=== PATIENT | female | born 1960 | race Hispanic/Latino ===

== ENCOUNTER 2022-11-26 03:18 | Emergency (ER) | payer OTHER ==
--- OUTSIDE RECORDS SUMMARY | 2022-11-26 03:23 | XMS REPORT | Continuity of Care Document ---
:1960 Author Organization [facility] t Address [address] [place] [address] [address] [place] [address] Care Team Providers Name Role Phone Asked, No Pcp Primary Care Physician Unavailable Norah Agustin Attending Clinician Unavailable Clyde Collins Attending Clinician Unavailable Lee Ramos Attending Clinician Unavailable Madison Attending Clinician Unavailable BRENNAN HICKEY Attending Clinician Unavailable DEIDRE LONGORIA Attending Clinician Unavailable HI CASTILLO Attending Clinician Unavailable FRED HUTSON Attending Clinician Unavailable Jose D Silva Attending Clinician Unavailable GC_HESC_Miranda_Hugh Attending Clinician Unavailable ANGELITO BARNETT Attending Clinician Unavailable BRITTNEY HILLIARD Attending Clinician Unavailable EKATERINA_GERTRUDE_Nikole Attending Clinician Unavailable Aleksandra Dacosta Attending Clinician [phone] KNOW, DOES_NOT Admitting Clinician Unavailable Balat, Isam Y Admitting Clinician Unavailable Physician, No Primary or Family Admitting Clinician Unavaila ble Riverorobles_A Admitting Clinician Unavailable Pravin Conner Admitting Clinician Unavailable EKATERINA_ADRIANA_Mirairam_L Admitting Clinician Unavailable JOSEGERTRUDE_Nikole Admitting Clinician Unavailable Payers Payer Name Policy Type Policy Number Effective Date Expiration Date Pat mealra [facility] [employer] [id number] 2016 2024 00:00:00 00:00:00 JARED GRUBER [id number] [facility] [place] [facility] [place] [facility] [id number] 2020 2021 [facility] 00:00:00 00:00:00 [place] [id number] SHARE PROGRAM (O) Problems Condition Condition Condition Status Onset Resolution Last Treating Co mments Source Name Details Category Date Date Treatment Clinician Date Upper Upper Problem Active [facility] respirator Respirator 6-12 Fa freda y y 00:00: Practic infection Infection 00 e Urinary Urinary Problem Active [facility] incontinen Incontinen 06-16 Me dical ce ce 00:00: 00 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 Female 06-14 Medi amie genital Genital 00:00: organs Organs 00 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[facility] vaginitis Vaginitis 06-14 Medi amie 00:00: 00 Dental Dental Disease Active 2014-06 [facility] plaque plaque 0 Health 00:00: 00 Asthma, Asthma, Disease Recurre [facility] mild mild nce 415 Health intermitte intermitte 00:00: nt nt 00 Normal Normal Disease Recurre [place] cardiac cardiac nce [facility] stress stress 00:00: test - test - 00 02/10/2013 02/10/2013 Normal Normal Disease Recurre [facility] echocardio echocardio nce 415 He alth gram - gram - 00:00: 02/09/2013 02/09/2013 00 Allergic Allergic Disease Recurre Sharon is rhinitis rhinitis nce 06-10 Health 00:00: 00 Atypical Atypical Disease Recurre Sharon is chest pain chest pain nce 02-10 He alth 00:00: 00 Gastritis Gastritis Disease Active Overview: [facility] 02-10 [facility] 00:00: g of this 00 note might be different from the original. 04/15/14 [facility] - EGD showed mild gastritis . bx showed H pylori infxn and mod to sev chronic active gastritis ; no dysplasia HLD HLD Disease Recurre [place] (hyperlipi (hyperlipi nce 9-05 He alth demia) demia) 00:00: 00 Cystocele, Cystocele, Disease Recurre [place] midline midline fle 7-10 Health 00:00: 00 Allergies, Adverse Reactions, Alerts Allergy Allergy Status Severity Reaction(s) Onset Inactive Treating Comm ents Source Name Type Date Date Clinician ibuprofe DA Active U [facility]- 00:[facility]: [address] POLLENS DA Active U ITCHING [facility] 3- 00:00: [address] ibuprofe DA Active U GASTRIC [facility] n DISCOMFORT 3- 00:00: [address] No Known DA Active U 2019-06 [facility] Allergie 07[facility]07 [place] 00[place]: [facility] 00 [facility] No Known DA Active U 2019-06 [facility] Allergie 2 [place] 00[place]: [facility] 00 [facility] Ibuprofe Propensi Active Other 2014-06 [place] n ty to 0-09 Health adverse 00:00: reaction 00 s to drug No Known DA Active U 2013-06 [facility] Allergie 1-12 [place] s 00:00: [address] Family History Family Member Diagnosis Comments Start Date Stop Date Source Natural father Diabetes [place] [facility] Maternal grandmother [facility] Natural mother Arthritis [place] [facility] Natural mother Heart [place] [facility] Natural mother Stroke [facility] Natural sister Arthritis [facility] Social History Social Habit Start Date Stop Date Quantity Comments Source [facility] SDOH [facility] Std Drinks [facility] History SDOH [facility] Alcohol Binge Medical Lesa ter Tobacco use and 2019-03-30 2019-03-[address] [facility] exposure 00:00:00 00:00:00 tobacco non-user [facility] Alcohol intake 2019-03-30 2019-03-[address] [facility] 00:00:00 00:00:00 non-drinker of Medical Ce nter alcohol (finding) History SDMI 2019-03-30 2019-03-30 1 MIRANDA [facility] Alcohol Frequency 00:00:00 00:00:00 Medical Center History of Social 2019-01-10 2019-01-[address] function 00:00:00 00:00:00 Hospital Sex Ass[birth year] At [birth year] MIRANDA Wilders 00:00:00 00:00:00 [facility] Smoking Status Start Date Stop Date Source Never Smoker [facility] Tobacco smoking consumption unknown [facility] Medications Ordered Filled Start Stop Current Ordering Indication Dosage Frequency Signature Comments Components Source Medication Medication Date Date Medication? Clinician (SIG) Name Name traMADol 2014-06 Yes Left ankle 50mg Take 1 H arris (ULTRAM) 50 0-31 pain tablet by [facility] lth mg tablet 00:00: mouth 00 every 8 hours as needed for Pain. predniSONE 2014-06 Yes Left ankle Take 4 [place] (DELTASONE) 0-31 pain tablets Healt h 10 mg 00:00: (40 mg) on tablet 00 Day 1; take 3 tablets (30 mg) on Days 2-3; take 2 tablets (20 mg) on Day 4; take 1 tablets (10 mg) on days 5 and 6.. PROVENTIL Yes Asthma with 2{puff} Inhale 2 [place] HFA 90 6-29 acute Puffs by [facility] mcg/actuati 00:00: exacerbatio mouth 4 on inhaler 00 n times daily as needed for Wheezing. budesonide- Yes Asthma with 2{puff} Q.5D Inhale 2 [place] formoterol 6-29 acute Puffs by [facility] th (SYMBICORT) 00:00: exacerbatio mouth 2 160-4.5 00 n times mcg/actuati daily. on inhaler mometasone Yes Allergy 1{spray QD use 1 [place] (NASONEX) 6-29 } [facility] 50 00:00: each mcg/actuati 00 nostril on nasal route spray daily. zafirlukast Yes Asthma with 20mg Q.5D Take 1 [place] (ACCOLATE) 6-29 acute tablet by [facility] lth 20 mg 00:00: exacerbatio mouth 2 tablet 00 n times daily. cetirizine Yes Asthma with 10mg QD Take 1 [place] (ZYRTEC) 10 6-29 acute tablet by alth mg tablet 00:00: exacerbatio mouth 00 n daily. albuterol Yes Asthma with 2.5mg Inhale 3 [place] (PROVENTIL) 6-29 acute mL by [facility] 2.5 mg /3 00:00: exacerbatio mouth mL (0.083 00 n every 6 %) hours as nebulizer needed for solution Wheezing. albuterol Yes Asthma with 2.5mg Inhale 0.5 [place] (PROVENTIL) 6-29 acute mL by [facility] 5 mg/mL 00:00: exacerbatio mouth nebulizer 00 n every 6 solution hours as needed for Wheezing. albuterol Yes Asthma with 2.5mg Inhale 0.5 [place] (PROVENTIL 6-29 acute mL by [facility] 0.5 %) 2.5 00:00: exacerbatio mouth as mg/0.5 mL 00 n needed (as neb needed for solution cough, SOB or wheezing). benzonatate Yes Asthma with 100mg Take 1 [place] (TESSALON 5-12 acute capsule by maxine doan ERICH) 100 00:00: exacerbatio mouth 3 mg capsule 00 n times daily as needed for Cough. Guaifenesin Yes Allergic 400mg Take 1 [place] 400 mg 4-15 rhinitis tablet by Heal th tablet 00:00: mouth 00 every 6 hours as needed for Congestion . albuterol albuterol No albuterol [place] sulfate HFA sulfate HFA sulfate Family 90 90 HFA 90 Practic mcg/actuati mcg/actuati mcg/actuat e on aerosol on aerosol ion inhaler inhaler aerosol PLEASE SEE PLEASE SEE inhaler ATTACHED ATTACHED PLEASE SEE FOR FOR ATTACHED DETAILED DETAILED FOR DIRECTIONS DIRECTIONS DETAILED DIRECTIONS amoxicillin amoxicillin No 1 Q12H amoxicilli [facility] [phone] Family mg-potassiu mg-potassiu mg-potassi Practic m m um e clavulanate clavulanate clavulanat 125 mg 125 mg e 125 mg tablet Take tablet Take tablet 1 tablet 1 tablet Take 1 every 12 every 12 tablet hours by hours by every 12 oral route oral route hours by for 7 days. for 7 days. oral route for 7 days. biest/proge biest/proge No biest/prog [place] sterone/feng sterone/feng esterone/t Family tosterone tosterone estosteron Practic APPLY APPLY e APPLY e CONTENTS OF CONTENTS OF CONTENTS 1 PUMP (0.5 1 PUMP (0.5 OF 1 PUMP MLS) TO MLS) TO (0.5 MLS) UPPER INNER UPPER INNER TO UPPER THIGH TWICE THIGH TWICE INNER A DAY A DAY THIGH TWICE A DAY biest0.625/ biest0.625/ No biest0.625 [facility] [id number] /[id number] Family /test2.5mg /test2.5mg mg/test2.5 Practic cream APPLY cream APPLY mg cream e CONTENTS OF CONTENTS OF APPLY 1 PUMP (0.5 1 PUMP (0.5 CONTENTS MLS) TO MLS) TO OF 1 PUMP UPPER INNER UPPER INNER (0.5 MLS) THIGH TWICE THIGH TWICE TO UPPER A DAY A DAY INNER THIGH TWICE A DAY biest0.625m biest0.625m No biest0.625 [facility] gprogestero gprogestero mgprogeste Family [id number] Practic .5mg APPLY .5mg APPLY st2.5mg e CONTENTS OF CONTENTS OF APPLY 1 PUMP (0.5 1 PUMP (0.5 CONTENTS MLS) TO MLS) TO OF 1 PUMP UPPER INNER UPPER INNER (0.5 MLS) THIGH TWICE THIGH TWICE TO UPPER A DAY A DAY INNER THIGH TWICE A DAY compounded compounded No compounded [facility] medication medication medication Family biest0.625m biest0.625m biest0.625 Practic gprogestero gprogestero mgprogeste e [id number] .5mg APPLY .5mg APPLY st2.5mg CONTENTS OF CONTENTS OF APPLY 1 PUMP (0.5 1 PUMP (0.5 CONTENTS MLS) TO MLS) TO OF 1 PUMP UPPER INNER UPPER INNER (0.5 MLS) THIGH TWICE THIGH TWICE TO UPPER A DAY A DAY INNER THIGH TWICE A DAY erythromyci erythromyci No erythromyc [place] n 5 mg/gram n 5 mg/gram in 5 F amily (0.5 %) eye (0.5 %) eye mg/gram Practic ointment ointment (0.5 %) e APPLY 1 CM APPLY 1 CM eye RIBBON INTO RIBBON INTO ointment THE LOWER THE LOWER APPLY 1 CM CONJUNCTIVA CONJUNCTIVA RIBBON L SAC(S) IN L SAC(S) IN INTO THE THE THE LOWER AFFECTED AFFECTED CONJUNCTIV EYE(S) BY EYE(S) BY AL SAC(S) OPHTHALMIC OPHTHALMIC IN THE ROUTE 3 ROUTE 3 AFFECTED TIMES PER TIMES PER EYE(S) BY DAY x 7 DAY x 7 OPHTHALMIC days days ROUTE 3 TIMES PER DAY x 7 days escitalopra escitalopra No escitalopr [place] m 10 mg m 10 mg am 10 mg Famil y tablet TOME tablet TOME tablet Practic TANJA TABLETA TANJA TABLETA TOME TANJA e TODOS LOS D TODOS LOS D TABLETA AL AL TODOS LOS ACOSTARSE ACOSTARSE D AL ACOSTARSE Flovent HFA Flovent HFA No Flovent [facility] 110 110 HFA 110 Family mcg/actuati mcg/actuati mcg/actuat Practic on aerosol on aerosol ion e inhaler 2 inhaler 2 aerosol PUFFS PUFFS inhaler 2 INHALED INHALED PUFFS ORALLY ORALLY INHALED TWICE A DAY TWICE A DAY ORALLY TWICE A DAY metformin metformin No metformin [facility] 500 mg 500 mg 500 mg Family tablet TAKE tablet TAKE tablet Practic 1 TABLET 1 TABLET TAKE 1 e EVERY DAY EVERY DAY TABLET WITH A MEAL WITH A MEAL EVERY DAY WITH A MEAL omeprazole omeprazole No omeprazole [facility] 20 mg 20 mg 20 mg Family capsule,del capsule,del capsule,de Practic ayed ayed layed e release release release TAKE ONE TAKE ONE TAKE ONE (1) (1) (1) CAPSULE(S) CAPSULE(S) CAPSULE(S) BY MOUTH BY MOUTH BY MOUTH TWICE A TWICE A TWICE A DAY. DAY. DAY. pravastatin pravastatin No pravastati [facility] 20 mg 20 mg n 20 mg Family tablet TOME tablet TOME tablet Practic TANJA TABLETA TANJA TABLETA TOME TANJA e TODOS LOS D TODOS LOS D TABLETA SEG N LO SEG N LO TODOS LOS INDICADO INDICADO D SEG N LO INDICADO albuterol albuterol No albuterol [place] sulfate HFA sulfate HFA sulfate Family 90 90 HFA 90 Practic mcg/actuati mcg/actuati mcg/actuat e on aerosol on aerosol ion inhaler inhaler aerosol PLEASE SEE PLEASE SEE inhaler ATTACHED ATTACHED PLEASE SEE FOR FOR ATTACHED DETAILED DETAILED FOR DIRECTIONS DIRECTIONS DETAILED DIRECTIONS biest/proge biest/proge No biest/prog [facility] sterone/feng sterone/feng esterone/t Family tosterone tosterone estosteron Practic APPLY APPLY e APPLY e CONTENTS OF CONTENTS OF CONTENTS 1 PUMP (0.5 1 PUMP (0.5 OF 1 PUMP MLS) TO MLS) TO (0.5 MLS) UPPER INNER UPPER INNER TO UPPER THIGH TWICE THIGH TWICE INNER A DAY A DAY THIGH TWICE A DAY biest0.625/ biest0.625/ No biest0.625 [facility] [id number] [id number] /iliwzyx99 Family /test2.5mg /test2.5mg mg/test2.5 Practic cream APPLY cream APPLY mg cream e CONTENTS OF CONTENTS OF APPLY 1 PUMP (0.5 1 PUMP (0.5 CONTENTS MLS) TO MLS) TO OF 1 PUMP UPPER INNER UPPER INNER (0.5 MLS) THIGH TWICE THIGH TWICE TO UPPER A DAY A DAY INNER THIGH TWICE A DAY biest0.625m biest0.625m No biest0.625 [facility] g/vffazc42s g/vuowmx72l mg/proges5 Family g/testos2.5 g/testos2.5 0mg/testos Practic mg cream mg cream 2.5mg e APPLY APPLY cream CONTENTS OF CONTENTS OF APPLY 1 PUMP (0.5 1 PUMP (0.5 CONTENTS MLS) TO MLS) TO OF 1 PUMP UPPER INNER UPPER INNER (0.5 MLS) THIGH TWICE THIGH TWICE TO UPPER A DAY A DAY INNER THIGH TWICE A DAY biest0.625m biest0.625m No biest0.625 [facility] gprogestero gprogestero mgprogeste Family [id number] Practic .5mg APPLY .5mg APPLY st2.5mg e CONTENTS OF CONTENTS OF APPLY 1 PUMP (0.5 1 PUMP (0.5 CONTENTS MLS) TO MLS) TO OF 1 PUMP UPPER INNER UPPER INNER (0.5 MLS) THIGH TWICE THIGH TWICE TO UPPER A DAY A DAY INNER THIGH TWICE A DAY compounded compounded No compounded [facility] medication medication medication Family biest0.625m biest0.625m biest0.625 Practic gprogestero gprogestero mgprogeste e [id number] .5mg APPLY .5mg APPLY st2.5mg CONTENTS OF CONTENTS OF APPLY 1 PUMP (0.5 1 PUMP (0.5 CONTENTS MLS) TO MLS) TO OF 1 PUMP UPPER INNER UPPER INNER (0.5 MLS) THIGH TWICE THIGH TWICE TO UPPER A DAY A DAY INNER THIGH TWICE A DAY escitalopra escitalopra No escitalopr [facility] m 10 mg m 10 mg am 10 mg Famil y tablet TOME tablet TOME tablet Practic TANJA TABLETA TANJA TABLETA TOME TANJA e TODOS LOS D TODOS LOS D TABLETA AL AL TODOS LOS ACOSTARSE ACOSTARSE D AL ACOSTARSE Flovent HFA Flovent HFA No Flovent [place] 110 110 HFA 110 Family mcg/actuati mcg/actuati mcg/actuat Practic on aerosol on aerosol ion e inhaler 2 inhaler 2 aerosol PUFFS PUFFS inhaler 2 INHALED INHALED PUFFS ORALLY ORALLY INHALED TWICE A DAY TWICE A DAY ORALLY TWICE A DAY albuterol albuterol No albuterol [facility] sulfate 2.5 sulfate 2.5 sulfate Family mg/3 mL mg/3 mL 2.5 mg/3 Pract ic (0.083 %) (0.083 %) mL (0.083 e solution solution %) for for solution nebulizatio nebulizatio for n USE THREE n USE THREE nebulizati (3) ML(S) (3) ML(S) on USE (VIAL) (VIAL) THREE (3) INHALATION INHALATION ML(S) EVERY 4 EVERY 4 (VIAL) HOURS HOURS INHALATION NEEDED FOR NEEDED FOR EVERY 4 7 DAYS. 7 DAYS. HOURS NEEDED FOR 7 DAYS. metformin metformin No metformin [facility] 500 mg 500 mg 500 mg Family tablet TAKE tablet TAKE tablet Practic 1 TABLET 1 TABLET TAKE 1 e EVERY DAY EVERY DAY TABLET WITH A MEAL WITH A MEAL EVERY DAY WITH A MEAL omeprazole omeprazole No omeprazole [facility] 20 mg 20 mg 20 mg Family capsule,del capsule,del capsule,de Practic ayed ayed layed e release release release TAKE ONE TAKE ONE TAKE ONE (1) (1) (1) CAPSULE(S) CAPSULE(S) CAPSULE(S) BY MOUTH BY MOUTH BY MOUTH TWICE A TWICE A TWICE A DAY. DAY. DAY. pravastatin pravastatin No pravastati [facility] 20 mg 20 mg n 20 mg Family tablet TOME tablet TOME tablet Practic TANJA TABLETA TANJA TABLETA TOME TANJA e TODOS LOS D TODOS LOS D TABLETA SEG N LO SEG N LO TODOS LOS INDICADO INDICADO D SEG N LO INDICADO albuterol albuterol No albuterol [place] sulfate HFA sulfate HFA sulfate Family 90 90 HFA 90 Practic mcg/actuati mcg/actuati mcg/actuat e on aerosol on aerosol ion inhaler inhaler aerosol INHALE TWO INHALE TWO inhaler (2) PUFF BY (2) PUFF BY INHALE TWO MOUTH EVERY MOUTH EVERY (2) PUFF 4 TO 6 4 TO 6 BY MOUTH HOURS HOURS EVERY 4 TO NEEDED FOR NEEDED FOR 6 HOURS COUGH AMD COUGH AMD NEEDED FOR WHEEZING. WHEEZING. COUGH AMD WHEEZING. albuterol albuterol No albuterol [place] sulfate HFA sulfate HFA sulfate Family 90 90 HFA 90 Practic mcg/actuati mcg/actuati mcg/actuat e on aerosol on aerosol ion inhaler inhaler aerosol PLEASE SEE PLEASE SEE inhaler ATTACHED ATTACHED PLEASE SEE FOR FOR ATTACHED DETAILED DETAILED FOR DIRECTIONS DIRECTIONS DETAILED DIRECTIONS biest/proge biest/proge No biest/prog [place] sterone/feng sterone/feng esterone/t Family tosterone tosterone estosteron Practic APPLY APPLY e APPLY e CONTENTS OF CONTENTS OF CONTENTS 1 PUMP (0.5 1 PUMP (0.5 OF 1 PUMP MLS) TO MLS) TO (0.5 MLS) UPPER INNER UPPER INNER TO UPPER THIGH TWICE THIGH TWICE INNER A DAY A DAY THIGH TWICE A DAY biest0.625/ biest0.625/ No biest0.625 [facility] [id number] /wxkqpif88 Family /test2.5mg /test2.5mg mg/test2.5 Practic cream APPLY cream APPLY mg cream e CONTENTS OF CONTENTS OF APPLY 1 PUMP (0.5 1 PUMP (0.5 CONTENTS MLS) TO MLS) TO OF 1 PUMP UPPER INNER UPPER INNER (0.5 MLS) THIGH TWICE THIGH TWICE TO UPPER A DAY A DAY INNER THIGH TWICE A DAY biest0.625m biest0.625m No biest0.625 [facility] g/dpuycl32g g/oekzkb89f mg/proges5 Family g/testos2.5 g/testos2.5 0mg/testos Practic mg cream mg cream 2.5mg e APPLY APPLY cream CONTENTS OF CONTENTS OF APPLY 1 PUMP (0.5 1 PUMP (0.5 CONTENTS MLS) TO MLS) TO OF 1 PUMP UPPER INNER UPPER INNER (0.5 MLS) THIGH TWICE THIGH TWICE TO UPPER A DAY A DAY INNER THIGH TWICE A DAY benzonatate benzonatate No benzonatat [facility] 200 mg 200 mg e 200 mg Family capsule capsule capsule Practi c TAKE ONE TAKE ONE TAKE ONE e (1) (1) (1) CAPSULE(S) CAPSULE(S) CAPSULE(S) BY MOUTH BY MOUTH BY MOUTH THREE TIMES THREE TIMES THREE A DAY. A DAY. TIMES A DAY. biest0.625m biest0.625m No biest0.625 [facility] gprogestero gprogestero mgprogeste Family [id number] [id number] Practic .5mg APPLY .5mg APPLY st2.5mg e CONTENTS OF CONTENTS OF APPLY 1 PUMP (0.5 1 PUMP (0.5 CONTENTS MLS) TO MLS) TO OF 1 PUMP UPPER INNER UPPER INNER (0.5 MLS) THIGH TWICE THIGH TWICE TO UPPER A DAY A DAY INNER THIGH TWICE A DAY compounded compounded No compounded [facility] medication medication medication Family biest0.625m biest0.625m biest0.625 Practic gprogestero gprogestero mgprogeste e [id number] chee93youp .5mg APPLY .5mg APPLY st2.5mg CONTENTS OF CONTENTS OF APPLY 1 PUMP (0.5 1 PUMP (0.5 CONTENTS MLS) TO MLS) TO OF 1 PUMP UPPER INNER UPPER INNER (0.5 MLS) THIGH TWICE THIGH TWICE TO UPPER A DAY A DAY INNER THIGH TWICE A DAY escitalopra escitalopra No escitalopr [facility] m 10 mg m 10 mg am 10 mg Famil y tablet TOME tablet TOME tablet Practic TANJA TABLETA TANJA TABLETA TOME TANJA e TODOS LOS D TODOS LOS D TABLETA AL AL TODOS LOS ACOSTARSE ACOSTARSE D AL ACOSTARSE Flovent HFA Flovent HFA No Flovent [facility] 110 110 HFA 110 Family mcg/actuati mcg/actuati mcg/actuat Practic on aerosol on aerosol ion e inhaler 2 inhaler 2 aerosol PUFFS PUFFS inhaler 2 INHALED INHALED PUFFS ORALLY ORALLY INHALED TWICE A DAY TWICE A DAY ORALLY TWICE A DAY metformin metformin No metformin [facility] 500 mg 500 mg 500 mg Family tablet TAKE tablet TAKE tablet Practic 1 TABLET 1 TABLET TAKE 1 e EVERY DAY EVERY DAY TABLET WITH A MEAL WITH A MEAL EVERY DAY WITH A MEAL omeprazole omeprazole No omeprazole [facility] 20 mg 20 mg 20 mg Family capsule,del capsule,del capsule,de Practic ayed ayed layed e release release release TAKE ONE TAKE ONE TAKE ONE (1) (1) (1) CAPSULE(S) CAPSULE(S) CAPSULE(S) BY MOUTH BY MOUTH BY MOUTH TWICE A TWICE A TWICE A DAY. DAY. DAY. pravastatin pravastatin No pravastati [facility] 20 mg 20 mg n 20 mg Family tablet TOME tablet TOME tablet Practic TANJA TABLETA TANJA TABLETA TOME TANJA e TODOS LOS D TODOS LOS D TABLETA SEG N LO SEG N LO TODOS LOS INDICADO INDICADO D SEG N LO INDICADO biest/proge biest/proge No biest/prog [facility] sterone/feng sterone/feng esterone/t Family tosterone tosterone estosteron Practic APPLY APPLY e APPLY e CONTENTS OF CONTENTS OF CONTENTS 1 PUMP (0.5 1 PUMP (0.5 OF 1 PUMP MLS) TO MLS) TO (0.5 MLS) UPPER INNER UPPER INNER TO UPPER THIGH TWICE THIGH TWICE INNER A DAY A DAY THIGH TWICE A DAY biest0.625/ biest0.625/ No biest0.625 [facility] [id number] [id number] /edqmhgq20 Family /test2.5mg /test2.5mg mg/test2.5 Practic cream APPLY cream APPLY mg cream e CONTENTS OF CONTENTS OF APPLY 1 PUMP (0.5 1 PUMP (0.5 CONTENTS MLS) TO MLS) TO OF 1 PUMP UPPER INNER UPPER INNER (0.5 MLS) THIGH TWICE THIGH TWICE TO UPPER A DAY A DAY INNER THIGH TWICE A DAY albuterol albuterol No albuterol [facility] sulfate HFA sulfate HFA sulfate Family 90 90 HFA 90 Practic mcg/actuati mcg/actuati mcg/actuat e on aerosol on aerosol ion inhaler inhaler aerosol PLEASE SEE PLEASE SEE inhaler ATTACHED ATTACHED PLEASE SEE FOR FOR ATTACHED DETAILED DETAILED FOR DIRECTIONS DIRECTIONS DETAILED DIRECTIONS biest/proge biest/proge No biest/prog [place] sterone/feng sterone/feng esterone/t Family tosterone tosterone estosteron Practic APPLY APPLY e APPLY e CONTENTS OF CONTENTS OF CONTENTS 1 PUMP (0.5 1 PUMP (0.5 OF 1 PUMP MLS) TO MLS) TO (0.5 MLS) UPPER INNER UPPER INNER TO UPPER THIGH TWICE THIGH TWICE INNER A DAY A DAY THIGH TWICE A DAY biest0.625/ biest0.625/ No biest0.625 [facility] [id number] isokpbt91jc /ubumeyk46 Family /test2.5mg /test2.5mg mg/test2.5 Practic cream APPLY cream APPLY mg cream e CONTENTS OF CONTENTS OF APPLY 1 PUMP (0.5 1 PUMP (0.5 CONTENTS MLS) TO MLS) TO OF 1 PUMP UPPER INNER UPPER INNER (0.5 MLS) THIGH TWICE THIGH TWICE TO UPPER A DAY A DAY INNER THIGH TWICE A DAY biest0.625m biest0.625m No biest0.625 [facility] g/ozibtq13s g/jkhtip29h mg/proges5 Family g/testos2.5 g/testos2.5 0mg/testos Practic mg cream mg cream 2.5mg e APPLY APPLY cream CONTENTS OF CONTENTS OF APPLY 1 PUMP (0.5 1 PUMP (0.5 CONTENTS MLS) TO MLS) TO OF 1 PUMP UPPER INNER UPPER INNER (0.5 MLS) THIGH TWICE THIGH TWICE TO UPPER A DAY A DAY INNER THIGH TWICE A DAY biest0.625m biest0.625m No biest0.625 [facility] g/gtvvzeq93 g/ mg/progest Family mg/testos2. mg/testos2. 50mg/testo Practic 5mg crm 5mg crm s2.5mg crm e APPLY APPLY APPLY CONTENTS OF CONTENTS OF CONTENTS 1 PUMP (0.5 1 PUMP (0.5 OF 1 PUMP MLS) TO MLS) TO (0.5 MLS) UPPER INNER UPPER INNER TO UPPER THIGH TWICE THIGH TWICE INNER A DAY A DAY THIGH TWICE A DAY biest0.625m biest0.625m No biest0.625 [facility] gprogestero gprogestero mgprogeste Family [id number] Practic .5mg APPLY .5mg APPLY st2.5mg e CONTENTS OF CONTENTS OF APPLY 1 PUMP (0.5 1 PUMP (0.5 CONTENTS MLS) TO MLS) TO OF 1 PUMP UPPER INNER UPPER INNER (0.5 MLS) THIGH TWICE THIGH TWICE TO UPPER A DAY A DAY INNER THIGH TWICE A DAY Bromfed DM Bromfed DM No 10mL Q4H Bromfed DM [facility] 2 mg-30 2 mg-30 2 mg-30 Family mg-10 mg/5 mg-10 mg/5 mg-10 mg/5 Practic mL oral mL oral mL oral e syrup Take syrup Take syrup Take 10 mL every 10 mL every 10 mL 4 hours by 4 hours by every 4 oral route. oral route. hours by oral route. biest0.625m biest0.625m No biest0.625 [facility] gprogestero gprogestero mgprogeste Family [id number] Practic .5mg APPLY .5mg APPLY st2.5mg e CONTENTS OF CONTENTS OF APPLY 1 PUMP (0.5 1 PUMP (0.5 CONTENTS MLS) TO MLS) TO OF 1 PUMP UPPER INNER UPPER INNER (0.5 MLS) THIGH TWICE THIGH TWICE TO UPPER A DAY A DAY INNER THIGH TWICE A DAY compounded compounded No compounded [facility] medication medication medication Family biest0.625m biest0.625m biest0.625 Practic gprogestero gprogestero mgprogeste e [id number] .5mg APPLY .5mg APPLY st2.5mg CONTENTS OF CONTENTS OF APPLY 1 PUMP (0.5 1 PUMP (0.5 CONTENTS MLS) TO MLS) TO OF 1 PUMP UPPER INNER UPPER INNER (0.5 MLS) THIGH TWICE THIGH TWICE TO UPPER A DAY A DAY INNER THIGH TWICE A DAY escitalopra escitalopra No escitalopr [facility] m 10 mg m 10 mg am 10 mg Famil y tablet TOME tablet TOME tablet Practic TANJA TABLETA TANJA TABLETA TOME TANJA e TODOS LOS TODOS LOS TABLETA CHÁVEZ AL CHÁVEZ AL TODOS LOS ACOSTARSE ACOSTARSE CHÁVEZ AL ACOSTARSE Flovent HFA Flovent HFA No Flovent [facility] 110 110 HFA 110 Family mcg/actuati mcg/actuati mcg/actuat Practic on aerosol on aerosol ion e inhaler 2 inhaler 2 aerosol PUFFS PUFFS inhaler 2 INHALED INHALED PUFFS ORALLY ORALLY INHALED TWICE A DAY TWICE A DAY ORALLY TWICE A DAY metformin metformin No metformin [facility] 500 mg 500 mg 500 mg Family tablet TOME tablet TOME tablet Practic TANJA TABLETA TANJA TABLETA TOME TANJA e TODOS LOS D TODOS LOS D TABLETA TODOS LOS D omeprazole omeprazole No omeprazole [facility] 20 mg 20 mg 20 mg Family capsule,del capsule,del capsule,de Practic ayed ayed layed e release release release TAKE ONE TAKE ONE TAKE ONE (1) (1) (1) CAPSULE(S) CAPSULE(S) CAPSULE(S) BY MOUTH BY MOUTH BY MOUTH TWICE A TWICE A TWICE A DAY. DAY. DAY. pravastatin pravastatin No pravastati [facility] 20 mg 20 mg n 20 mg Family tablet TOME tablet TOME tablet Practic TANJA TABLETA TANJA TABLETA TOME TANJA e TODOS LOS TODOS LOS TABLETA CHÁVEZ NADEGE CHÁVEZ NADEGE TODOS LOS LO INDICADO LO INDICADO CHÁVEZ NADEGE LO INDICADO Zithromax Zithromax No Zithromax [facility] Z-Rick 250 Z-Rick 250 Z-Rick 250 Family mg tablet mg tablet mg tablet Practic TAKE 2 TAKE 2 TAKE 2 e TABLETS TABLETS TABLETS (500 MG) BY (500 MG) BY (500 MG) ORAL ROUTE ORAL ROUTE BY ORAL ONCE DAILY ONCE DAILY ROUTE ONCE FOR 1 DAY FOR 1 DAY DAILY FOR THEN 1 THEN 1 1 DAY THEN TABLET (250 TABLET (250 1 TABLET MG) BY ORAL MG) BY ORAL (250 MG) ROUTE ONCE ROUTE ONCE BY ORAL DAILY FOR 4 DAILY FOR 4 ROUTE ONCE DAYS DAYS DAILY FOR 4 DAYS escitalopra escitalopra No 1 Q1D escitalopr [facility] m 10 mg m 10 mg am 10 mg Famil y tablet Take tablet Take tablet Practic 1 tablet 1 tablet Take 1 e every day every day tablet by oral by oral every day route at route at by oral bedtime for bedtime for route at 90 days. 90 days. bedtime for 90 days. Flovent HFA Flovent HFA No Flovent [facility] 110 110 HFA 110 Family mcg/actuati mcg/actuati mcg/actuat Practic on aerosol on aerosol ion e inhaler 2 inhaler 2 aerosol PUFFS PUFFS inhaler 2 INHALED INHALED PUFFS ORALLY ORALLY INHALED TWICE A DAY TWICE A DAY ORALLY TWICE A DAY metformin metformin No 1 Q1D metformin [facility] 500 mg 500 mg 500 mg Family tablet Take tablet Take tablet Practic 1 tablet 1 tablet Take 1 e every day every day tablet by oral by oral every day route for route for by oral 90 days. 90 days. route for 90 days. albuterol albuterol No albuterol [facility] sulfate HFA sulfate HFA sulfate Family 90 90 HFA 90 Practic mcg/actuati mcg/actuati mcg/actuat e on aerosol on aerosol ion inhaler inhaler aerosol PLEASE SEE PLEASE SEE inhaler ATTACHED ATTACHED PLEASE SEE FOR FOR ATTACHED DETAILED DETAILED FOR DIRECTIONS DIRECTIONS DETAILED DIRECTIONS biest/proge biest/proge No biest/prog [facility] sterone/feng sterone/feng esterone/t Family tosterone tosterone estosteron Practic APPLY APPLY e APPLY e CONTENTS OF CONTENTS OF CONTENTS 1 PUMP (0.5 1 PUMP (0.5 OF 1 PUMP MLS) TO MLS) TO (0.5 MLS) UPPER INNER UPPER INNER TO UPPER THIGH TWICE THIGH TWICE INNER A DAY A DAY THIGH TWICE A DAY biest0.625/ biest0.625/ No biest0.625 [facility] [id number] Family /test2.5mg /test2.5mg mg/test2.5 Practic cream APPLY cream APPLY mg cream e CONTENTS OF CONTENTS OF APPLY 1 PUMP (0.5 1 PUMP (0.5 CONTENTS MLS) TO MLS) TO OF 1 PUMP UPPER INNER UPPER INNER (0.5 MLS) THIGH TWICE THIGH TWICE TO UPPER A DAY A DAY INNER THIGH TWICE A DAY biest0.625m biest0.625m No biest0.625 [facility] [id number] g/[id number] mg/proges5 Family g/testos2.5 g/testos2.5 0mg/testos Practic mg cream mg cream 2.5mg e APPLY APPLY cream CONTENTS OF CONTENTS OF APPLY 1 PUMP (0.5 1 PUMP (0.5 CONTENTS MLS) TO MLS) TO OF 1 PUMP UPPER INNER UPPER INNER (0.5 MLS) THIGH TWICE THIGH TWICE TO UPPER A DAY A DAY INNER THIGH TWICE A DAY biest0.625m biest0.625m No biest0.625 [facility] g/[id number] g/[id number] mg/progest Family mg/testos2. mg/testos2. 50mg/testo Practic 5mg crm 5mg crm s2.5mg crm e APPLY APPLY APPLY CONTENTS OF CONTENTS OF CONTENTS 1 PUMP (0.5 1 PUMP (0.5 OF 1 PUMP MLS) TO MLS) TO (0.5 MLS) UPPER INNER UPPER INNER TO UPPER THIGH TWICE THIGH TWICE INNER A DAY A DAY THIGH TWICE A DAY biest0.625m biest0.625m No biest0.625 [facility] gprogestero gprogestero mgprogeste Family [id number] Practic .5mg APPLY .5mg APPLY st2.5mg e CONTENTS OF CONTENTS OF APPLY 1 PUMP (0.5 1 PUMP (0.5 CONTENTS MLS) TO MLS) TO OF 1 PUMP UPPER INNER UPPER INNER (0.5 MLS) THIGH TWICE THIGH TWICE TO UPPER A DAY A DAY INNER THIGH TWICE A DAY Bromfed DM Bromfed DM No 10mL Q4H Bromfed DM [facility] 2 mg-30 2 mg-30 2 mg-30 Family mg-10 mg/5 mg-10 mg/5 mg-10 mg/5 Practic mL oral mL oral mL oral e syrup Take syrup Take syrup Take 10 mL every 10 mL every 10 mL 4 hours by 4 hours by every 4 oral route. oral route. hours by oral route. compounded compounded No compounded [facility] medication medication medication Family biest0.625m biest0.625m biest0.625 Practic gprogestero gprogestero mgprogeste e [id number] .5mg APPLY .5mg APPLY st2.5mg CONTENTS OF CONTENTS OF APPLY 1 PUMP (0.5 1 PUMP (0.5 CONTENTS MLS) TO MLS) TO OF 1 PUMP UPPER INNER UPPER INNER (0.5 MLS) THIGH TWICE THIGH TWICE TO UPPER A DAY A DAY INNER THIGH TWICE A DAY escitalopra escitalopra No escitalopr [facility] m 10 mg m 10 mg am 10 mg Famil y tablet TOME tablet TOME tablet Practic TANJA TABLETA TANJA TABLETA TOME TANJA e TODOS LOS TODOS LOS TABLETA CHÁVEZ AL CHÁVEZ AL TODOS LOS ACOSTARSE ACOSTARSE CHÁVEZ AL ACOSTARSE omeprazole omeprazole No omeprazole [facility] 20 mg 20 mg 20 mg Family capsule,del capsule,del capsule,de Practic ayed ayed layed e release release release TAKE ONE TAKE ONE TAKE ONE (1) (1) (1) CAPSULE(S) CAPSULE(S) CAPSULE(S) BY MOUTH BY MOUTH BY MOUTH TWICE A TWICE A TWICE A DAY. DAY. DAY. Flovent HFA Flovent HFA No Flovent [facility] 110 110 HFA 110 Family mcg/actuati mcg/actuati mcg/actuat Practic on aerosol on aerosol ion e inhaler 2 inhaler 2 aerosol PUFFS PUFFS inhaler 2 INHALED INHALED PUFFS ORALLY ORALLY INHALED TWICE A DAY TWICE A DAY ORALLY TWICE A DAY metformin metformin No metformin [facility] 500 mg 500 mg 500 mg Family tablet TOME tablet TOME tablet Practic TANJA TABLETA TANJA TABLETA TOME TANJA e TODOS LOS D TODOS LOS D TABLETA TODOS LOS D omeprazole omeprazole No omeprazole [facility] 20 mg 20 mg 20 mg Family capsule,del capsule,del capsule,de Practic ayed ayed layed e release release release TAKE ONE TAKE ONE TAKE ONE (1) (1) (1) CAPSULE(S) CAPSULE(S) CAPSULE(S) BY MOUTH BY MOUTH BY MOUTH TWICE A TWICE A TWICE A DAY. DAY. DAY. pravastatin pravastatin No [facility] 20 mg 20 mg n 20 mg Family tablet TOME tablet TOME tablet Practic TANJA TABLETA TANJA TABLETA TOME TANJA e TODOS LOS TODOS LOS TABLETA CHÁVEZ NADEGE CHÁVEZ NADEGE TODOS LOS LO INDICADO LO INDICADO CHÁVEZ NADEGE LO INDICADO Zithromax Zithromax No Zithromax [facility] Z-Rick 250 Z-Rick 250 Z-Rick 250 Family mg tablet mg tablet mg tablet Practic TAKE 2 TAKE 2 TAKE 2 e TABLETS TABLETS TABLETS (500 MG) BY (500 MG) BY (500 MG) ORAL ROUTE ORAL ROUTE BY ORAL ONCE DAILY ONCE DAILY ROUTE ONCE FOR 1 DAY FOR 1 DAY DAILY FOR THEN 1 THEN 1 1 DAY THEN TABLET (250 TABLET (250 1 TABLET MG) BY ORAL MG) BY ORAL (250 MG) ROUTE ONCE ROUTE ONCE BY ORAL DAILY FOR 4 DAILY FOR 4 ROUTE ONCE DAYS DAYS DAILY FOR 4 DAYS pravastatin pravastatin No 1 Q1D pravastati [facility] 20 mg 20 mg n 20 mg Family tablet Take tablet Take tablet Practic 1 tablet 1 tablet Take 1 e every day every day tablet by oral by oral every day route as route as by oral directed directed route as for 90 for 90 directed days. days. for 90 days. albuterol albuterol No albuterol [facility] sulfate 2.5 sulfate 2.5 sulfate Family mg/3 mL mg/3 mL 2.5 mg/3 Pract ic (0.083 %) (0.083 %) mL (0.083 e solution solution %) for for solution nebulizatio nebulizatio for n USE THREE n USE THREE nebulizati (3) ML(S) (3) ML(S) on USE (VIAL) (VIAL) THREE (3) INHALATION INHALATION ML(S) EVERY 4 EVERY 4 (VIAL) HOURS HOURS INHALATION NEEDED FOR NEEDED FOR EVERY 4 7 DAYS. 7 DAYS. HOURS NEEDED FOR 7 DAYS. albuterol albuterol No albuterol [facility] sulfate HFA sulfate HFA sulfate Family 90 90 HFA 90 Practic mcg/actuati mcg/actuati mcg/actuat e on aerosol on aerosol ion inhaler inhaler aerosol INHALE TWO INHALE TWO inhaler (2) PUFF BY (2) PUFF BY INHALE TWO MOUTH EVERY MOUTH EVERY (2) PUFF 4 TO 6 4 TO 6 BY MOUTH HOURS HOURS EVERY 4 TO NEEDED FOR NEEDED FOR 6 HOURS COUGH AMD COUGH AMD NEEDED FOR WHEEZING. WHEEZING. COUGH AMD WHEEZING. benzonatate benzonatate No benzonatat [facility] 200 mg 200 mg e 200 mg Family capsule capsule capsule Practi c TAKE ONE TAKE ONE TAKE ONE e (1) (1) (1) CAPSULE(S) CAPSULE(S) CAPSULE(S) BY MOUTH BY MOUTH BY MOUTH THREE TIMES THREE TIMES THREE A DAY. A DAY. TIMES A DAY. biest/proge biest/proge No biest/prog [facility] sterone/feng sterone/feng esterone/t Family tosterone tosterone estosteron Practic APPLY APPLY e APPLY e CONTENTS OF CONTENTS OF CONTENTS 1 PUMP (0.5 1 PUMP (0.5 OF 1 PUMP MLS) TO MLS) TO (0.5 MLS) UPPER INNER UPPER INNER TO UPPER THIGH TWICE THIGH TWICE INNER A DAY A DAY THIGH TWICE A DAY biest0.625/ biest0.625/ No biest0.625 [facility] [id number] Family /test2.5mg /test2.5mg mg/test2.5 Practic cream APPLY cream APPLY mg cream e CONTENTS OF CONTENTS OF APPLY 1 PUMP (0.5 1 PUMP (0.5 CONTENTS MLS) TO MLS) TO OF 1 PUMP UPPER INNER UPPER INNER (0.5 MLS) THIGH TWICE THIGH TWICE TO UPPER A DAY A DAY INNER THIGH TWICE A DAY biest0.625m biest0.625m No biest0.625 [facility] gprogestero gprogestero mgprogeste Family [id number] Practic .5mg APPLY .5mg APPLY st2.5mg e CONTENTS OF CONTENTS OF APPLY 1 PUMP (0.5 1 PUMP (0.5 CONTENTS MLS) TO MLS) TO OF 1 PUMP UPPER INNER UPPER INNER (0.5 MLS) THIGH TWICE THIGH TWICE TO UPPER A DAY A DAY INNER THIGH TWICE A DAY escitalopra escitalopra No 1 Q1D escitalopr [facility] m 10 mg m 10 mg am 10 mg Famil y tablet Take tablet Take tablet Practic 1 tablet 1 tablet Take 1 e every day every day tablet by oral by oral every day route at route at by oral bedtime for bedtime for route at 90 days. 90 days. bedtime for 90 days. Flovent HFA Flovent HFA No Flovent [facility] 110 110 HFA 110 Family mcg/actuati mcg/actuati mcg/actuat Practic on aerosol on aerosol ion e inhaler 2 inhaler 2 aerosol PUFFS PUFFS inhaler 2 INHALED INHALED PUFFS ORALLY ORALLY INHALED TWICE A DAY TWICE A DAY ORALLY TWICE A DAY metformin metformin No 1 Q1D metformin [facility] 500 mg 500 mg 500 mg Family tablet Take tablet Take tablet Practic 1 tablet 1 tablet Take 1 e every day every day tablet by oral by oral every day route for route for by oral 90 days. 90 days. route for 90 days. omeprazole omeprazole No omeprazole [facility] 20 mg 20 mg 20 mg Family capsule,del capsule,del capsule,de Practic ayed ayed layed e release release release TAKE ONE TAKE ONE TAKE ONE (1) (1) (1) CAPSULE(S) CAPSULE(S) CAPSULE(S) BY MOUTH BY MOUTH BY MOUTH TWICE A TWICE A TWICE A DAY. DAY. DAY. pravastatin pravastatin No 1 Q1D pravastati [facility] 20 mg 20 mg n 20 mg Family tablet Take tablet Take tablet Practic 1 tablet 1 tablet Take 1 e every day every day tablet by oral by oral every day route as route as by oral directed directed route as for 90 for 90 directed days. days. for 90 days. albuterol albuterol No albuterol [facility] sulfate 2.5 sulfate 2.5 sulfate Family mg/3 mL mg/3 mL 2.5 mg/3 Pract ic (0.083 %) (0.083 %) mL (0.083 e solution solution %) for for solution nebulizatio nebulizatio for n USE THREE n USE THREE nebulizati (3) ML(S) (3) ML(S) on USE (VIAL) (VIAL) THREE (3) INHALATION INHALATION ML(S) EVERY 4 EVERY 4 (VIAL) HOURS HOURS INHALATION NEEDED FOR NEEDED FOR EVERY 4 7 DAYS. 7 DAYS. HOURS NEEDED FOR 7 DAYS. albuterol albuterol No albuterol [facility] sulfate HFA sulfate HFA sulfate Family 90 90 HFA 90 Practic mcg/actuati mcg/actuati mcg/actuat e on aerosol on aerosol ion inhaler inhaler aerosol PLEASE SEE PLEASE SEE inhaler ATTACHED ATTACHED PLEASE SEE FOR FOR ATTACHED DETAILED DETAILED FOR DIRECTIONS DIRECTIONS DETAILED DIRECTIONS biest/proge biest/proge No biest/prog [facility] sterone/feng sterone/feng esterone/t Family tosterone tosterone estosteron Practic APPLY APPLY e APPLY e CONTENTS OF CONTENTS OF CONTENTS 1 PUMP (0.5 1 PUMP (0.5 OF 1 PUMP MLS) TO MLS) TO (0.5 MLS) UPPER INNER UPPER INNER TO UPPER THIGH TWICE THIGH TWICE INNER A DAY A DAY THIGH TWICE A DAY biest0.625/ biest0.625/ No biest0.625 [facility] [id number] Family /test2.5mg /test2.5mg mg/test2.5 Practic cream APPLY cream APPLY mg cream e CONTENTS OF CONTENTS OF APPLY 1 PUMP (0.5 1 PUMP (0.5 CONTENTS MLS) TO MLS) TO OF 1 PUMP UPPER INNER UPPER INNER (0.5 MLS) THIGH TWICE THIGH TWICE TO UPPER A DAY A DAY INNER THIGH TWICE A DAY biest0.625m biest0.625m No biest0.625 [facility] gprogestero gprogestero mgprogeste Family [id number] Practic .5mg APPLY .5mg APPLY st2.5mg e CONTENTS OF CONTENTS OF APPLY 1 PUMP (0.5 1 PUMP (0.5 CONTENTS MLS) TO MLS) TO OF 1 PUMP UPPER INNER UPPER INNER (0.5 MLS) THIGH TWICE THIGH TWICE TO UPPER A DAY A DAY INNER THIGH TWICE A DAY compounded compounded No compounded [facility] medication medication medication Family biest0.625m biest0.625m biest0.625 Practic gprogestero gprogestero mgprogeste e [id number] .5mg APPLY .5mg APPLY st2.5mg CONTENTS OF CONTENTS OF APPLY 1 PUMP (0.5 1 PUMP (0.5 CONTENTS MLS) TO MLS) TO OF 1 PUMP UPPER INNER UPPER INNER (0.5 MLS) THIGH TWICE THIGH TWICE TO UPPER A DAY A DAY INNER THIGH TWICE A DAY escitalopra escitalopra No escitalopr [facility] m 10 mg m 10 mg am 10 mg Famil y tablet TOME tablet TOME tablet Practic TANJA TABLETA TANJA TABLETA TOME TANJA e TODOS LOS D TODOS LOS D TABLETA AL AL TODOS LOS ACOSTARSE ACOSTARSE D AL ACOSTARSE Flovent HFA Flovent HFA No Flovent [facility] 110 110 HFA 110 Family mcg/actuati mcg/actuati mcg/actuat Practic on aerosol on aerosol ion e inhaler 2 inhaler 2 aerosol PUFFS PUFFS inhaler 2 INHALED INHALED PUFFS ORALLY ORALLY INHALED TWICE A DAY TWICE A DAY ORALLY TWICE A DAY metformin metformin No metformin [facility] 500 mg 500 mg 500 mg Family tablet TAKE tablet TAKE tablet Practic 1 TABLET 1 TABLET TAKE 1 e EVERY DAY EVERY DAY TABLET WITH A MEAL WITH A MEAL EVERY DAY WITH A MEAL omeprazole omeprazole No omeprazole [facility] 20 mg 20 mg 20 mg Family capsule,del capsule,del capsule,de Practic ayed ayed layed e release release release TAKE ONE TAKE ONE TAKE ONE (1) (1) (1) CAPSULE(S) CAPSULE(S) CAPSULE(S) BY MOUTH BY MOUTH BY MOUTH TWICE A TWICE A TWICE A DAY. DAY. DAY. pravastatin pravastatin No pravastati [facility] 20 mg 20 mg n 20 mg Family tablet TOME tablet TOME tablet Practic TANJA TABLETA TANJA TABLETA TOME TANJA e TODOS LOS D TODOS LOS D TABLETA SEG N LO SEG N LO TODOS LOS INDICADO INDICADO D SEG N LO INDICADO Anusol-HC Anusol-HC No 1suppos BID Anusol-HC [facility] 25 mg 25 mg itor(y/ 25 mg Medical rectal rectal ies) rectal suppository suppository suppositor Insert 1 Insert 1 y Insert 1 suppository suppository suppositor twice a day twice a day y twice a by rectal by rectal day by route as route as rectal needed for needed for route as 14 days. 14 days. needed for notify notify 14 days. patient patient notify when ready when ready patient when ready azithromyci azithromyci No azithromyc [facility] n 250 mg n 250 mg in 250 mg Me dical tablet tablet tablet cephalexin cephalexin No cephalexin [facility] 500 mg 500 mg 500 mg Medical capsule capsule capsule Take 1 Take 1 Take 1 capsule capsule capsule twice a day twice a day twice a by oral by oral day by route as route as oral route directed directed as for 5 days. for 5 days. directed for 5 days. estradiol estradiol No estradiol [facility] 0.01% (0.1 0.01% (0.1 0.01% (0.1 Medical mg/gram) mg/gram) mg/gram) vaginal vaginal vaginal cream cream cream Insert 0.5 Insert 0.5 Insert 0.5 gm into gm into gm into vagina vagina vagina twice a twice a twice a week at week at week at bedtime. bedtime. bedtime. estradiol estradiol No estradiol [facility] 10 mcg 10 mcg 10 mcg Medical vaginal vaginal vaginal tablet 1 tablet 1 tablet 1 tablet per tablet per tablet per vagina vagina vagina nightly for nightly for nightly 2 weeks, 2 weeks, for 2 then 1 then 1 weeks, tablet per tablet per then 1 vagina at vagina at tablet per bedtime bedtime vagina at twice twice bedtime weekly weekly twice weekly hyoscyamine hyoscyamine No hyoscyamin [facility] sulfate sulfate e sulfate Medi amie 0.125 mg 0.125 mg 0.125 mg tablet tablet tablet ibuprofen ibuprofen No ibuprofen [facility] 800 mg 800 mg 800 mg Medical tablet Take tablet Take tablet 1 tablet 1 tablet Take 1 every 8 every 8 tablet hours by hours by every 8 oral route oral route hours by as needed. as needed. oral route as needed. methylpredn methylpredn No methylpred [facility] isolone 4 isolone 4 nisolone 4 Medical mg tablets mg tablets mg tablets in a dose in a dose in a dose pack pack pack Mucinex Mucinex No Mucinex [facility] pravastatin pravastatin No pravastati [facility] 10 mg 10 mg n 10 mg Medical tablet Take tablet Take tablet 1 tablet 1 tablet Take 1 every day every day tablet by oral by oral every day route. route. by oral route. prednisone prednisone No prednisone [facility] 20 mg 20 mg 20 mg Medical tablet tablet tablet Ventolin Ventolin No Ventolin Judith via HFA 90 HFA 90 HFA 90 Medical mcg/actuati mcg/actuati mcg/actuat on aerosol on aerosol ion inhaler inhaler aerosol inhaler Vitamin Vitamin No Vitamin [facility] Immunizations Ordered Immunization Filled Immunization Date Status Commen ts Source Name Name COVID-19, mRNA, COVID-19, mRNA, 2022-04-19 Completed [facility] age Family LNP-S, bivalent, PF, LNP-S, bivalent, 00:00:00 Practice 50 mcg/0.5 mL dose PF, 50 mcg/0.5 mL (Moderna) - ML dose (Moderna) - ML COVID-19, mRNA, COVID-19, mRNA, 2020-08-04 Completed [facility] LNP-S, PF, 100 LNP-S, PF, 100 00:00:00 Practi ce mcg/0.5 mL dose mcg/0.5 mL dose (Moderna) - ML (Moderna) - ML COVID-19, mRNA, COVID-19, mRNA, 2020-07-07 Completed [facility] age Family LNP-S, PF, 100 LNP-S, PF, 100 00:00:00 Practi ce mcg/0.5 mL dose mcg/0.5 mL dose (Moderna) - ML (Moderna) - ML Influenza Vaccine 2015-03-31 Completed [facility] 00:00:00 Pneumoccoccal 2014-12-14 Completed [facility] 00:00:00 Tdap Tetanus, 2014-02-06 Completed [facility] diphtheria, acellular 00:00:00 pertussis Vaccine PPD 2011-10-11 Completed [facility] 00:00:00 Vital Signs Vital Name Observation Time Observation Value Comments Source BP Diastolic 2022-11-15 00:00:00 70 mm[Hg] [facility] Height 2022-11-15 00:00:00 62 [in_i] [facility] BMI (Body Mass 2022-11-15 00:00:00 27.1 kg/m2 [facility] BP Systolic 2022-11-15 00:00:00 119 mm[Hg] [facility] Body Weight 2022-11-15 00:00:00 148 [lb_av] [facility] BP Diastolic 2022-11-13 00:00:00 70 mm[Hg] [facility] Height 2022-11-13 00:00:00 62 [in_i] [facility] BMI (Body Mass 2022-11-13 00:00:00 27.3 kg/m2 [facility] BP Systolic 2022-11-13 00:00:00 118 mm[Hg] [facility] Body Weight 2022-11-13 00:00:00 149.2 [lb_av] [facility] BP Diastolic 2022-10-09 00:00:00 68 mm[Hg] [facility] Height 2022-10-09 00:00:00 62 [in_i] [facility] BMI (Body Mass 2022-10-09 00:00:00 27.7 kg/m2 [facility] BP Systolic 2022-10-09 00:00:00 111 mm[Hg] [facility] Body Weight 2022-10-09 00:00:00 151.4 [lb_av] [facility] BP Diastolic 2022-08-29 00:00:00 74 mm[Hg] [facility] Height 2022-08-29 00:00:00 62 [in_i] [facility] BMI (Body Mass 2022-08-29 00:00:00 27.4 kg/m2 [facility] BP Systolic 2022-08-29 00:00:00 116 mm[Hg] [facility] Body Weight 2022-08-29 00:00:00 149.8 [lb_av] [facility] BP Diastolic 2022-08-17 00:00:00 66 mm[Hg] [facility] Height 2022-08-17 00:00:00 62 [in_i] [facility] BMI (Body Mass 2022-08-17 00:00:00 27.3 kg/m2 [facility] Index) Practice BP Systolic 2022-08-17 00:00:00 103 mm[Hg] [facility] Body Weight 2022-08-17 00:00:00 149 [lb_av] [facility] BP Diastolic 2022-08-04 00:00:00 68 mm[Hg] [facility] Height 2022-08-04 00:00:00 62 [in_i] [facility] BMI (Body Mass 2022-08-04 00:00:00 27.3 kg/m2 [facility] Index) Practice BP Systolic 2022-08-04 00:00:00 108 mm[Hg] [facility] Body Weight 2022-08-04 00:00:00 149 [lb_av] [facility] BP Diastolic 2020-10-15 00:00:00 62 mm[Hg] [facility] Height 2020-10-15 00:00:00 62 [in_i] [facility] BMI (Body Mass 2020-10-15 00:00:00 27.1 kg/m2 [facility] Medical Index) BP Systolic 2020-10-15 00:00:00 131 mm[Hg] [facility] No edical Body Weight 2020-10-15 00:00:00 148 [lb_av] [facility] Procedures Procedure Date / Time Performed Performing Clinician [facility] X-RAY OF CHEST 2 VIEW 2022-11-15 00:00:00 [facility] X-RAY OF CHEST 2 VIEW 2022-08-04 00:00:00 [facility] Laparoscopic Total 2020-08-24 00:00:00 [facility] dical Hysterectomy Bone Density Scan [facility] Colonoscopy [facility] Screening Mammography [facility] Hysterectomy (Total) [facility] Ligation of Fallopian [facility] Med ical Tube Plan of Care Planned Activity Planned Date Details Comments Source Diagnostic Test 2022-11-15 HbA1c (hemoglobin [facility] Pending 00:00:00 A1c), blood [code = Practice HbA1c (hemoglobin A1c), blood] Diagnostic Test 2022-11-15 lipid panel, serum [facility] Pending 00:00:00 [code = lipid Practice panel, serum] Future Scheduled Test 2016-01-28 Scre[facility] 00:00:00 malignant neoplasm of cervix (procedure) [code = 933048093] Future Scheduled Test 2014-12-02 [facility] 00:00:00 malignant neoplasm of colon (procedure) [code = 938630227] Future Scheduled Test 2014-11-13 Breast Cancer Scrn [facility] 00:00:00 (Yearly) [code = Breast Cancer Scrn (Yearly)] Future Scheduled Test 1988 [facility] for [facility] 00:00:00 malignant neoplasm of cervix (procedure) [code = [id number]] Future Scheduled Test 1959-[birth year]-30 COVID-19 Vaccine [facility] 00:00:00 (#1) [code = COVID-19 Vaccine (#1)] Future Appointment 2023-02-21 Daniel Woodard 14:15:00 [id number] [facility]; [address], [place] [address] Future Appointment 2023-02-15 [facility] Brooke stein 09:00:[address], [place] [address] Enrique [facility] Encounters Start End Encounter Admission Attending Care Care Encounter Source Date/Time Date/Time Type Type Clinicians Facility Department ID 2022-10-31 Outpatient [facility] [id number] [place] 11:50:53 [id number] Health 2022-10-27 Outpatient [facility] [id number] [place] 16:52:30 [id number] [facility] 2022-10-12 Outpatient [facility] [id number] [place] 13:42:18 [id number] [facility] 2020-08-25 Inpatient ANÍBAL Agustin, [facility] [id number] [facility] 00:09:01 Norah 30 [facility] 2020-05-10 Inpatient Collins, [facility] ENDO [id number] [facility] 08:00:00 Clyde 25 [facility] 2022-11-15 2022-11-15 Outpatient ANÍBAL Dobbs HCANW RADI [id number] [facility] 14:09:00 14:09:00 Katey Forrester [facility] 2022-11-15 2022-11-15 Lee [facility] [place] - [id number] V illage 00:00:00 00:00:00 [place] [facility] - Pra ctic les, 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 2022-11-14 2022-11-14 Outpatient [place] VFP VFP 271 [id number] [facility] 00:00:00 00:00:00 s_A [id number] Family Practic e 2022-11-14 2022-11-14 Outpatient [place] VFP VFP 271 [id number] [facility] 00:00:00 00:00:00 s_A [id number] Family Practic e 2022-11-13 2022-11-13 Outpatient [place] VFP VFP 271 [id number] [facility] 00:00:00 00:00:00 s_A [id number] Family Practic e 2022-11-13 2022-11-13 Dori VFP [place] - [id number] V illage 00:00:00 00:00:00 [facility] steffi , STRATEGIC DEBRIEFING SPECIALIST: Medical - Practi c [id number] [place] - e Mike [address]IG[address], [address], [place] [address] , Ph. 2022-10-19 2022-10-19 Outpatient [place] VFP VFP 271 [id number] [facility] 00:00:00 00:00:00 s_A [id number] Family Practic e 2022-10-09 2022-10-09 Lee VFP [place] - [id number] V illage 00:00:00 00:00:00 [facility]tic [facility], STRATEGIC DEBRIEFING SPECIALIST: [place] - e [address], [place] [address] , Ph. 2022-09-25 2022-09-25 Emergency E FEMI HICKEY [address] 21:02:00 22:52:00 BRENNAN 2022-09-15 2022-09-15 Outpatient [place] VFP VFP 271 [id number] [facility] 00:00:00 00:00:00 s_A [id number] Family Practic e 2022-09-09 2022-09-09 Emergency E [facility]OND [facility] 7508 [facility] 04:16:00 05:51:00 DEIDRE AYALA 2022-08-29 2022-08-29 Ken Muir VFP [place] - [id number] [facility] 00:00:00 00:00:00 [facility] Clayton estrada MD: [address], [address], [place] [address] , Ph. 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 2022-08-07 2022-08-07 Danuta Leung VFP [place] - [id number] [facility] 00:00:00 00:00:00 [facility] Family THOMPSON: [address], [address], [place] [address] , Ph. 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 2022-07-31 2022-07-31 Outpatient [place] VFP VFP [address] [place] [address] 00:00:00 00:00:00 s_A [id number] Family Practic e 2022-07-31 2022-07-31 Outpatient [place] VFP VFP [address] [place] [address] 00:00:00 00:00:00 s_A [id number] Family Practic e 2022-05-07 2022-05-08 Emergency E ANNA, [facility]NW MHNW 7507 [facility] 20:56:00 02:41:00 MATHURWENDYG 2021-05-31 2021-05-31 Emergency E FRED HUTSON [facility]NW 7506 [facility] 15:26:00 17:48:00 2021-05-26 2021-05-26 Emergency E RUPERTO, MHNW MHNW 7505 [facility]NW 15:32:00 21:53:00 BRENNAN 2021-05-20 2021-05-20 Outpatient ANÍBAL Silva, RIO OPLA [id number] [facility] 08:00:00 23:00:00 Jose D 55 [facility] 2021-05-20 2021-05-20 Outpatient SHAVONNE Silva LABO [id number] [facility] 13:37:00 13:37:00 Jose D Quiñones [facility] 2021-05-17 2021-05-17 Outpatient GC_HESC_Mir PRIV PRIV [id number] [facility] 10:21:00 10:21:00 anda_L [id number] Medica l 2021-03-21 2021-03-21 Emergency E ANGELITO BARNETT NW [facility]NW 7504 [facility] 02:18:00 05:47:00 2021-03-17 2021-03-17 Emergency E BABAK MHTW MHTW 7503 MHTW 19:28:00 23:22:00 BRITTNEY 2020-10-15 2020-10-15 Outpatient _[facility] PRIV PRIV 207 [id number] [facility] 10:15:00 10:15:00 _Nikole [id number] Medica l 2020-10-15 2020-10-15 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 [phone] 2020-10-15 2020-10-15 Outpatient Dacosta, [facility] PRIV [id number] 00:00:00 00:00:00 Aleksandra [id number] 2020-10-14 2020-10-14 Outpatient _[facility] PRIV PRIV 207 [id number] [facility] 03:58:00 03:58:00 _Nikole [id number] Medica l 2020-08-20 2020-08-20 Outpatient LAUREN AgustinU REFE [id number] [facility] 11:45:00 11:45:00 Norah 02 [facility] Results Test Description Test Time Test Comments Results Result Comments Source - XR CHEST 2 V 2022-11-15 14:49:00 [facility] 1960 Sex: F Camilo tiejuana Name: KATHY DORMAN Unit No: [id number] EXAMS: CPT: [id number] XR CHEST 2 V [id number] COMPARISON: None. CHEST RADIOGRAPHS -FRONTAL AND LATERAL VIEWS. INDICATION: Shortness of breath. FINDINGS: The lungs are clear. No consolidation or effusion is seen. The hilar regions and pulmonary vasculature are unremarkable. Cardiac silhouette is normal. IMPRESSION: No acute lung disease. at 1449 Reported and signed by: Theresa Mcguire MD CC: Undefined Provider Technologist: Francoise Sood Time: DAP (Gy m2): Air Kerma (mGy): Trscr Dt/Tm: 11/15/2022 (1449) by:[email or web address] Orig Print D/T: S: 11/15/2022 (0313) BATCH NO: N/A Name: KATHY DORMAN [facility] Phys: UNDEFINED - Undefined Provider [address] [facility] : 1960 Age: 62 Sex: F [place], [place] [address] Loc: N.RAD Exam Date: 11/15/2022 Status: REG CLI PH: FAX: PAGE 1 Signed Report Influenza virus A and B and SARS-CoV+SARS-CoV-2 (COVID -19) 2022-11-13 13:10:00 panel - Upper respiratory specimen by Rapid immunoassay Test Item Value Reference Range Interpretation Comme nts Influenza A (test code = Influenza A) Presumptive Negative Influenza B (test code = Influenza B) Presumptive Negative SARS-CoV-2 Antigen (test code = SARS-CoV-2 Antigen) Presumptive Neg ative [facility], [id number] 13:10:00 Test Item Value Reference Range Interpretation Comments Strep (test code = Strep) negative [facility], [id number] 09:13:00 Test Item Value Reference Range Interpretation Comments WBC (test code = WBC) 0-5 0-5 RBC (test code = RBC) none seen 0-2 epithelial cells (non renal) (test 0-10 0-10 code = epithelial cells (non renal)) epithelial cells (renal) (test code comment = epithelial cells (renal)) casts (test code = casts) none seen none seen cast type (test code = cast type) comment crystals (test code = crystals) comment crystal type (test code = crystal comment type) mucus threads (test code = mucus comment threads) bacteria (test code = bacteria) none seen none seen/few yeast (test code = yeast) comment trichomonas (test code = comment trichomonas) comment (test code = comment) comment [facility] identified [facility] Urine by [id number] 09:13:00 Test Item Value Reference Range Interpretation Comments urine culture,comprehensive final report (test code = urine culture,comprehensive) result 1 (test code = result 1) comment [facility], [id number] 09:13:00 Test Item Value Reference Range Interpretation Comments WBC (test code = WBC) 0-5 0-5 RBC (test code = RBC) none seen 0-2 epithelial cells (non renal) (test 0-10 0-10 code = epithelial cells (non renal)) epithelial cells (renal) (test code comment = epithelial cells (renal)) casts (test code = casts) none seen none seen cast type (test code = cast type) comment crystals (test code = crystals) comment crystal type (test code = crystal comment type) mucus threads (test code = mucus comment threads) bacteria (test code = bacteria) none seen none seen/few yeast (test code = yeast) comment trichomonas (test code = comment trichomonas) comment (test code = comment) comment [facility] identified [facility] Urine by [id number] 09:13:00 Test Item Value Reference Range Interpretation Comments urine culture,comprehensive final report (test code = urine culture,comprehensive) result 1 (test code = result 1) comment [facility] W Reflex Culture panel - Urine 2022-08-09 00:00:00 Test Item Value Reference Range Interpretation Comments specific gravity (test code = 1.017 1.005-1.030 specific gravity) pH (test code = pH) 6.0 5.0-7.5 urine-color (test code = yellow yellow urine-color) appearance (test code = appearance) clear clear WBC esterase (test code = WBC 1+ negative A esterase) protein (test code = protein) negative negative/trace glucose (test code = glucose) negative negative ketones (test code = ketones) negative negative occult blood (test code = occult negative negative blood) bilirubin (test code = bilirubin) negative negative urobilinogen,semi-qn (test code = 0.2 mg/dL 0.2-1.0 urobilinogen,semi-qn) nitrite, urine (test code = negative negative nitrite, urine) microscopic examination (test code = microscopic examination) urinalysis reflex (test code = comment urinalysis reflex) [facility]Creatinine [Mass Ratio] in [id number] 00:00:00 Test Item Value Reference Range Interpretation Comments creatinine, urine (test code = 118.7 mg/dL not estab. creatinine, urine) albumin, urine (test code = 5.4 ug/mL not estab. albumin, urine) alb/creat ratio (test code = 5 mg/g creat 0-29 alb/creat ratio) [facility] W Reflex Culture panel - Urine 2022-08-09 00:00:00 Test Item Value Reference Range Interpretation Comments specific gravity (test code = 1.017 1.005-1.030 specific gravity) pH (test code = pH) 6.0 5.0-7.5 urine-color (test code = yellow yellow urine-color) appearance (test code = appearance) clear clear WBC esterase (test code = WBC 1+ negative A esterase) protein (test code = protein) negative negative/trace glucose (test code = glucose) negative negative ketones (test code = ketones) negative negative occult blood (test code = occult negative negative blood) bilirubin (test code = bilirubin) negative negative urobilinogen,semi-qn (test code = 0.2 mg/dL 0.2-1.0 urobilinogen,semi-qn) nitrite, urine (test code = negative negative nitrite, urine) microscopic examination (test code = microscopic examination) urinalysis reflex (test code = comment urinalysis reflex) [facility]inine [Mass Ratio] in [id number] 00:00:00 Test Item Value Reference Range Interpretation Comments creatinine, urine (test code = 118.7 mg/dL not estab. creatinine, urine) albumin, urine (test code = 5.4 ug/mL not estab. albumin, urine) alb/creat ratio (test code = 5 mg/g creat 0-29 alb/creat ratio) [facility]2023-03-07 11:13:00 Test Item Value Reference Range Interpretation Comments cholesterol, total (test code = 224 mg/dL 100-199 H cholesterol, total) triglycerides (test code = 142 mg/dL 0-149 triglycerides) HDL cholesterol (test code = HDL 43 mg/dL >39 cholesterol) VLDL cholesterol amie (test code = 26 mg/dL 5-40 VLDL cholesterol amie) Cholesterol in LDL [Mass/volume] in 155 mg/dL 0-99 H Serum or Plasma (test code = 2089-1) [facility] A1C with EAG [id number] 11:13:00 Test Item Value Reference Range Interpretation Comments Hemoglobin A1c/Hemoglobin.total in 6.4 % 4.8-5.6 H Blood (test code = 4548-4) estim. avg glu (EAG) (test code = 137 mg/dL estim. avg glu (EAG)) [place] [id number] 11:13:00 Test Item Value Reference Range Interpretation Comments TSH (test code = TSH) 4.010 uIU/mL 0.450-4.500 [facility]2023-03-07 11:13:00 Test Item Value Reference Range Interpretation Comments cholesterol, total (test code = 224 mg/dL 100-199 H cholesterol, total) triglycerides (test code = 142 mg/dL 0-149 triglycerides) HDL cholesterol (test code = HDL 43 mg/dL >39 cholesterol) VLDL cholesterol amie (test code = 26 mg/dL 5-40 VLDL cholesterol amie) Cholesterol in LDL [Mass/volume] in 155 mg/dL 0-99 H Serum or Plasma (test code = 2089-1) [facility] A1C with EAG [id number] 11:13:00 Test Item Value Reference Range Interpretation Comments Hemoglobin A1c/Hemoglobin.total in 6.4 % 4.8-5.6 H Blood (test code = 4548-4) estim. avg glu (EAG) (test code = 137 mg/dL estim. avg glu (EAG)) [place] [id number] 11:13:00 Test Item Value Reference Range Interpretation Comments TSH (test code = TSH) 4.010 uIU/mL 0.450-4.500 [facility] W Auto Differential panel - [id number] 00:00:00 Test Item Value Reference Range Interpretation Comments WBC (test code = WBC) 5.1 x10e3/uL 3.4-10.8 RBC (test code = RBC) 4.54 x10e6/uL 3.77-5.28 hemoglobin (test code = 13.5 g/dL 11.1-15.9 hemoglobin) hematocrit (test code = 39.9 % 34.0-46.6 hematocrit) MCV (test code = MCV) 88 fL 79-97 MCH (test code = MCH) 29.7 pg 26.6-33.0 MCHC (test code = MCHC) 33.8 g/dL 31.5-35.7 RDW (test code = RDW) 13.3 % 11.7-15.4 platelets (test code = 224 x10e3/uL 150-450 platelets) neutrophils (test code = 48 % not estab. neutrophils) lymphs (test code = lymphs) 39 % not estab. monocytes (test code = 7 % not estab. monocytes) eos (test code = eos) 5 % not estab. basos (test code = basos) 1 % not estab. immature cells (test code = comment immature cells) neutrophils (absolute) (test 2.5 x10e3/uL 1.4-7.0 code = neutrophils (absolute)) lymphs (absolute) (test code = 2.0 x10e3/uL 0.7-3.1 lymphs (absolute)) monocytes(absolute) (test code 0.3 x10e3/uL 0.1-0.9 = monocytes(absolute)) eos (absolute) (test code = eos 0.2 x10e3/uL 0.0-0.4 (absolute)) baso (absolute) (test code = 0.0 x10e3/uL 0.0-0.2 baso (absolute)) immature granulocytes (test 0 % not estab. code = immature granulocytes) immature grans (abs) (test code 0.0 x10e3/uL 0.0-0.1 = immature grans (abs)) hematology comments: (test code comment = hematology comments:) [facility] 2000 panel - Serum or Plasma 2022-08-08 00:00:00 Test Item Value Reference Range Interpretation Comments glucose (test code = glucose) 111 mg/dL 70-99 H BUN (test code = BUN) 14 mg/dL 8-27 creatinine (test code = 0.78 mg/dL 0.57-1.00 creatinine) eGFR (test code = eGFR) 85 mL/min/1.73 >59 BUN/creatinine ratio (test 18 12-28 code = BUN/creatinine ratio) sodium (test code = sodium) 143 mmol/L 134-144 potassium (test code = 4.3 mmol/L 3.5-5.2 potassium) chloride (test code = 105 mmol/L 96-106 chloride) carbon dioxide, total (test 22 mmol/L 20-29 code = carbon dioxide, total) calcium (test code = calcium) 9.2 mg/dL 8.7-10.3 protein, total (test code = 6.6 g/dL 6.0-8.5 protein, total) albumin (test code = albumin) 4.4 g/dL 3.8-4.8 globulin, total (test code = 2.2 g/dL 1.5-4.5 globulin, total) A/G ratio (test code = A/G 2.0 1.2-2.2 ratio) bilirubin, total (test code = 0.3 mg/dL 0.0-1.2 bilirubin, total) alkaline phosphatase (test 45 IU/L 44-121 code = alkaline phosphatase) AST (SGOT) (test code = AST 17 IU/L 0-40 (SGOT)) ALT (SGPT) (test code = ALT 17 IU/L 0-32 (SGPT)) [facility] Differential panel - [id number] 00:00:00 Test Item Value Reference Range Interpretation Comments WBC (test code = WBC) 5.1 x10e3/uL 3.4-10.8 RBC (test code = RBC) 4.54 x10e6/uL 3.77-5.28 hemoglobin (test code = 13.5 g/dL 11.1-15.9 hemoglobin) hematocrit (test code = 39.9 % 34.0-46.6 hematocrit) MCV (test code = MCV) 88 fL 79-97 MCH (test code = MCH) 29.7 pg 26.6-33.0 MCHC (test code = MCHC) 33.8 g/dL 31.5-35.7 RDW (test code = RDW) 13.3 % 11.7-15.4 platelets (test code = 224 x10e3/uL 150-450 platelets) neutrophils (test code = 48 % not estab. neutrophils) lymphs (test code = lymphs) 39 % not estab. monocytes (test code = 7 % not estab. monocytes) eos (test code = eos) 5 % not estab. basos (test code = basos) 1 % not estab. immature cells (test code = comment immature cells) neutrophils (absolute) (test 2.5 x10e3/uL 1.4-7.0 code = neutrophils (absolute)) lymphs (absolute) (test code = 2.0 x10e3/uL 0.7-3.1 lymphs (absolute)) monocytes(absolute) (test code 0.3 x10e3/uL 0.1-0.9 = monocytes(absolute)) eos (absolute) (test code = eos 0.2 x10e3/uL 0.0-0.4 (absolute)) baso (absolute) (test code = 0.0 x10e3/uL 0.0-0.2 baso (absolute)) immature granulocytes (test 0 % not estab. code = immature granulocytes) immature grans (abs) (test code 0.0 x10e3/uL 0.0-0.1 = immature grans (abs)) hematology comments: (test code comment = hematology comments:) [facility] - Serum or Plasma 2022-08-08 00:00:00 Test Item Value Reference Range Interpretation Comments glucose (test code = glucose) 111 mg/dL 70-99 H BUN (test code = BUN) 14 mg/dL 8-27 creatinine (test code = 0.78 mg/dL 0.57-1.00 creatinine) eGFR (test code = eGFR) 85 mL/min/1.73 >59 BUN/creatinine ratio (test 18 12-28 code = BUN/creatinine ratio) sodium (test code = sodium) 143 mmol/L 134-144 potassium (test code = 4.3 mmol/L 3.5-5.2 potassium) chloride (test code = 105 mmol/L 96-106 chloride) carbon dioxide, total (test 22 mmol/L 20-29 code = carbon dioxide, total) calcium (test code = calcium) 9.2 mg/dL 8.7-10.3 protein, total (test code = 6.6 g/dL 6.0-8.5 protein, total) albumin (test code = albumin) 4.4 g/dL 3.8-4.8 globulin, total (test code = 2.2 g/dL 1.5-4.5 globulin, total) A/G ratio (test code = A/G 2.0 1.2-2.2 ratio) bilirubin, total (test code = 0.3 mg/dL 0.0-1.2 bilirubin, total) alkaline phosphatase (test 45 IU/L 44-121 code = alkaline phosphatase) AST (SGOT) (test code = AST 17 IU/L 0-40 (SGOT)) ALT (SGPT) (test code = ALT 17 IU/L 0-32 (SGPT)) [facility] Coronavirus [id number] 06:08:00 Test Item Value Reference Range Interpretation Comments Novel Coronavirus Negative Negative Positive r esults are 2019 Inhouse (test indicativ e of the presence code = [id number]) ofSARS-CoV -2 RNA, clinical correlation wit h patient historyand othe r diagnostic info rmation is necessary to determinepatien t infection status. Positiv e results do not rule out bacterial infection or co -infection with other viru ses. Negative result s do not preclude SARS-C oV-2 infection andsh ould not be used as the ted e basis for patient managementdecis ions. Negative result s must be combined with otherclinical observations, p atient history, and epidemiological information . Detection of SARS-CoV-2 RNA may be affe cted bysample collec tion methods, storag e conditions, and /or stageof infection. Alexia l RNA mutations, vacc inations, antiviraltherap eutics, antibiotics, chemotherapeuti c orimmunosuppres gavi drugs have not been e valuated for effectson d etection. Results are for the identification of SARS-CoV-2 RNA usingreal-time (RT) polymerase nura n reaction (PCR) technolog yfor the qualitative det ection of nucleic acids f rom [id number] v irus and diagnosis of SA RS-CoV-2 virusinfection. It is an Emergency Use Authorization ( EUA) testauthorized by the U.S. FDA. Novel Coronavirus [id number] 06:07:00 Test Item Value Reference Range Interpretation Comments Novel Coronavirus Negative Negative Positive r esults are 2019 Inhouse (test indicativ e of the presence code = [id number]) ofSARS-CoV -2 RNA, clinical correlation wit h patient historyand othe r diagnostic info rmation is necessary to determinepatien t infection status. Positiv e results do not rule out bacterial infection or co -infection with other viru ses. Negative result s do not preclude SARS-C oV-2 infection andsh ould not be used as the ted e basis for patient managementdecis ions. Negative result s must be combined with otherclinical observations, p atient history, and epidemiological information . Detection of SARS-CoV-2 RNA may be affe cted bysample collec tion methods, storag e conditions, and /or stageof infection. Alexia l RNA mutations, vacc inations, antiviraltherap eutics, antibiotics, chemotherapeuti c orimmunosuppres gavi drugs have not been e valuated for effectson d etection. Results are for the identification of SARS-CoV-2 RNA usingreal-time (RT) polymerase nura n reaction (PCR) technolog yfor the qualitative det ection of nucleic acids f rom [id number] v irus and diagnosis of SA RS-CoV-2 virusinfection. It is an Emergency Use Authorization ( EUA) testauthorized by the U.S. FDA. COMPREHENSIVE METABOLIC [id number] 14:16:00 Test Item Value Reference Range Interpretation Comments SODIUM (test code = 143 mmol/L 136-145 N NA) POTASSIUM (test code 3.8 mmol/L 3.5-5.1 N = K) CHLORIDE (test code = 109.0 mmol/L 98-107 H CL) CARBON DIOXIDE (test 28.0 mmol/L 21-32 N code = CO2) ANION GAP (test code 9.8 10-20 L = GAP) GLUCOSE (test code = 97 mg/dL 74-106 N GLU) BLOOD UREA NITROGEN 16 mg/dL 7-18 N (test code = BUN) GLOMERULAR FILTRATION > 60 mL/min See_Comment Estima bere GFR by RATE (test code = using Emir fied MDRD GFR) formula.Chronic kidney disease is defined as eith er kidney damageor GFR <60 mL/min/1.73 m2 for >3 months. [Automated mess age] The system [employer] generated this result transmit bere reference range : >=60. The refer ence range was not u sed to interpret th is result as normal/abnormal . CREATININE (test code 0.70 mg/dL 0.55-1.02 N Note change in = CREAT) reference range due to change in reagent. BUN/CREATININE RATIO 21.6 10-20 H (test code = BUN/CREA) TOTAL PROTEIN (test 6.8 gram/dL 6.4-8.2 N code = PROT) ALBUMIN (test code = 4.3 g/dL 3.4-5.0 N ALB) GLOBULIN (test code = 2.5 gram/dL 2.7-4.2 L GLOB) ALBUMIN/GLOBULIN 1.7 0.75-1.50 H RATIO (test code = A/G) CALCIUM (test code = 9.4 mg/dL 8.5-10.1 N CA) BILIRUBIN TOTAL (test 0.50 mg/dL 0.0-1.0 N code = BILT) SGOT/AST (test code = 25 IUnit/L 15-37 N AST) SGPT/ALT (test code = 27 IUnit/L 12-78 N ALT) ALKALINE PHOSPHATASE 49 IUnit/L 45-117 N Note change in TOTAL (test code = reference range due ALKP) to change in reagent. CBC W/AUTO [id number] 13:47:00 Test Item Value Reference Range Interpretation Comments WHITE BLOOD CELL (test code = 5.3 K/mm3 4.5-12.5 N WBC) RED BLOOD CELL (test code = 4.37 mill/mm3 3.7-5.2 N RBC) HEMOGLOBIN (test code = HGB) 12.7 gram/dL 11.5-15.5 N HEMATOCRIT (test code = HCT) 39.4 % 36.0-46.0 N MEAN CELL VOLUME (test code = 90.2 fL 80-98 N MCV) MEAN CELL HGB (test code = MCH) 29.1 picogram 27.0-33.0 N MEAN CELL HGB CONCETRATION 32.2 gram/dL 33.0-36.0 L (test code = MCHC) RED CELL DISTRIBUTION WIDTH 13.9 % 11.6-16.2 N (test code = RDW) RED CELL DISTRIBUTION WIDTH SD 45.6 fL 37.0-51.0 N (test code = RDW-SD) PLATELET COUNT (test code = 257 K/mm3 150-450 N PLT) MEAN PLATELET VOLUME (test code 10.0 fL 6.7-11.0 N = MPV) NEUTROPHIL % (test code = NT%) 56.9 % 39.0-69.0 N IMMATURE GRANULOCYTE % (test 0.4 % 0.0-5.0 N code = IG%) LYMPHOCYTE % (test code = LY%) 32.5 % 25.0-55.0 N MONOCYTE % (test code = MO%) 7.0 % 0.0-10.0 N EOSINOPHIL % (test code = EO%) 2.6 % 0.0-5.0 N BASOPHIL % (test code = BA%) 0.6 % 0.0-1.0 N NUCLEATED RBC % (test code = 0.0 % 0-0 N NRBC%) NEUTROPHIL # (test code = NT#) 3.02 K/mm3 1.8-7.7 N IMMATURE GRANULOCYTE # (test 0.02 x10 3/uL 0-0.03 N code = IG#) LYMPHOCYTE # (test code = LY#) 1.72 K/mm3 1.0-5.0 N MONOCYTE # (test code = MO#) 0.37 K/mm3 0-0.8 N EOSINOPHIL # (test code = EO#) 0.14 K/mm3 0.0-0.5 N BASOPHIL # (test code = BA#) 0.03 K/mm3 0.0-0.2 N NUCLEATED RBC # (test code = 0.00 K/mm3 0.0-0.1 N NRBC#) MANUAL DIFF REQUIRED (test code NO = MDIFF) UTERUS W/WO TUBE/OVA. [id number] 15:45:00 Test Item Value Reference Range Interpretation Comments UTERUS W/WO TUBE/OVA. PROLAPSE (test code = UTERUSPRO) RUN DATE: 08/25/20 [facility] PAGE 1 RUN TIME: 1818 Specimen Inquiry RUN USER: INTERFACE PATIENT: KATHY DORMAN LOC: XIMENA U #: [id number] AGE/SX: 59/F ROOM: [facility] RE08/24/20REG DR: Norah Agustin MD : 56 BED: A DIS: 08/25/20 STATUS: DIS Arnulfo TLOC: SPEC #: [id number] RECD: 08/24/20-1015 STATUS: OSWALD THOMAS #: [id number] KURT: 08/24/20- SUBM DR: Norah Agustin MD ENTERED: 08/24/20-1017 SP TYPE: UTERUSPRO OTHR DR: ORDERED: LEVEL IV CODES: [id number] - UTERUS, NOS PROCEDURES: LEVEL IV (Incomplete) TISSUES: UTERUS, NOS - UTERUS,CERVIX,BILATERAL TUBES AND OVARIES CLINICAL HISTORY 59 year old, cystocele, uterine prolapse, rectocele, PREETHI (dipesh) FINAL DIAGNOSIS Uterus, bilateral fallopian tubes and ovaries, hysterectomy and bilateral salpingo-oophorectomy: cervix - mild nonspecific chronic cervicitis - no dysplasia identified endometrium - benign, weakly proliferative myometrium - no significant pathologic alteration uterine serosa - no significant pathologic alteration right and left fallopian tubes - status post ligation - no significant pathologic alteration right and left ovaries - no significant pathologic alteration CPT: 23906 [facility] GROSS DESCRIPTION ANATOMIC SOURCE OF TISSUE (per Requisition): Uterus, cervix, bilateral tubes and ovaries The specimen is received in a formalin-filled container, labeled with the patient's name and designated "uterus, cervix, bilateral fallopian tubes and ovaries". The specimen consists of a 50 gm, 5.5 x 4.0 x 3.5 cm uterus with cervix (2.5 x 2.5 cm, with a 0.7 cm slit-like os), bilateral tubes (5.5 x 0.5 cm right and left), and bilateral ovaries (2.5 x 0.7 x 0.5 cm right nd 2.8 x 1.0 x 0.5 cm left). The serosa is awad-pink and dull. The specimen is bivalved to reveal a 2.5 x 1.2 cm awad-pink endometrial cavity. The endometrial thickness averages 0.1 cm. The myometrium is awad-pink with a 1.2 cm CONTINUED ON NEXT PAGE RUN DATE: 08/25/20 [facility] PAGE 2 RUN TIME: 1818 Specimen Inquiry RUN USER: INTERFACE SPEC #: [id number] PATIENT: KATHY DORMAN #[id number] (Continued) --- GROSS DESCRIPTION (Continued) average thickness. The endocervix is awad-pink. The ectocervix is pink-red and dull. The right fallopian tube is awad-pink with fimbriae. Sectioning reveals a pinpoint lumen. The right fallopian tube has a 0.3 cm awad-white sterilization device. The right ovary is awad-pink. Sectioning reveals a awad-pink cut surface. The left fallopian tube is awad-pink with fimbriae. Sectioning reveals a pinpoint lumen. A 0.3 cm awad-white sterilization device is identified. The left ovary is awad-pink and dull. Sectioning reveals a awad-pink cut surface. Paring Machine Operator sections are submitted as follows: A1 - anterior cervix A2 - posterior cervix A3 - anterior endomyometrium, full-thickness A4 - posterior endomyometrium, full-thickness A5 - right fallopian tube A6 - right ovary A7 - left fallopian tube A8 - left ovary dilia/caio 08/24/20 Signed Sharon Ayala MD 08/25/20 1545 END OF REPORT HGB [id number] 05:51:00 Test Item Value Reference Range Interpretation Comments HEMOGLOBIN (test code = HGB) 11.7 g/dL 10.1-13.8 N HEMATOCRIT (test code = HCT) 36.1 % 32.5-41.8 N [id number] 07:22:00 Test Item Value Reference Range Interpretation Comments GLUBED (test code = GLUBED) 104 mg/dL 65-110 N COVID 19 Asymptomatic IH [id number] 17:35:00 Test Item Value Reference Range Interpretation Comments COVID 19 NEGATIVE NEGATIVE This test has b een Asymptomatic IH AG authorize d only for the (test code = detection ofpro teins from COVNONPUIAG) SARS-CoV-2, not for any other viruses orpathogens. Ne gative results should be treated as presumptive andconfirmed wi th a molecular assay , if necessary for patientmanageme nt. Negative result s do not rule out COVID- 19 andshould not b e used as the sole basis for treatment orpat ient management deci sions, including infec tion controldecision s. Negative result s should be considered i n thecontext of a patient's recent exposure s, history and thepresence of clinical signs and symptoms consis tent withCOVID-19. T his test has not been FD A cleared or approved; th e test hasbeen authori harpald by FDA under an Emerge ncy Use Authorization(E UA) for use by crystalato crow certified under the CLIA thatmeet the re quirements to perform mode rate, high or waivedcomple xity tests. This feng t is authorized for use at thePoint of Car e (POC), i.e., in patien t care settingsoperati ng under a CLIA Certificat e of Waiver, Certifi garrison ofCompliance, o r Certificate of Accreditation. This test is only authori zed for the duration of thedeclaration that circumstances e xist justifying theauthorizatio n of emergency use o f in vitro diagnostic test sfor detection and/o r diagnosis of CO VID-19 under Vsxwkeu65 4(b)(1) of the Act, 21 U.S .C. 360bbb-3(b)(1), unless theauthorizatio n is terminated or r evoked sooner. CHEMISTRY 7 [id number] 16:59:00 Test Item Value Reference Range Interpretation Comments SODIUM (test code = NA) 145 mEq/L 135-145 N POTASSIUM (test code = K) 3.8 mEq/L 3.5-5.0 N CHLORIDE (test code = CL) 105 mEq/L 100-115 N CARBON DIOXIDE (test code = CO2) 29 mEq/L 22-31 N ANION GAP (test code = GAP) 15.00 10-20 N GLUCOSE (test code = GLU) 93 mg/dL 65-110 N BLOOD UREA NITROGEN (test code = 15 mg/dL 7-18 N BUN) GLOMERULAR FILTRATION RATE (test 73 ml/min >60 N code = GFR) CREATININE (test code = CREAT) 0.8 mg/dL 0.5-1.0 N CALCIUM (test code = CA) 9.0 mg/dL 8.4-10.2 N GLYCOSYLATED HEMOGLOBIN (HA1C)2020-08-20 16:59:00 Test Item Value Reference Range Interpretation Comments GLYCOSYLATED 6.1 % 4.8-5.9 H Any condition t hat shortens HEMOGLOBIN (HA1C) erythocyte survival or (test code = GLYHGB) decreas esmean erythrocyte age (e.g., mahsa very from acute blood los s,hemolytic anemia) will fa lsely lower HGBA1c resultsr egardless of the method used . HGBA1c results from camilo eng HbSS, HbCC, and HbSc must be interpreted with cautiongiven th e pathological pr ocesses, including anemi a,increased red cell turnov er, transfusion req uirements, thatadversely i mpact HGBA1c as a marker of long-term glycemiccontrol . Alternative for ms of testing such as fructosaminesho uld be considered for these patients. GLYCOSYLATED HEMOGLOBIN [id number] 16:59:00 Test Item Value Reference Range Interpretation Comments GLYCOSYLATED 6.1 % 4.8-5.9 H Any condition t hat HEMOGLOBIN (HA1C) shortens e rythocyte (test code = survival or dec reasesmean GLYHGB) erythrocyte age (e.g., recovery from a cute blood loss,hemolytic anemia) will falsely lo wer HGBA1c resultsregardle ss of the method used. HG BA1c results from camilo eng HbSS, HbCC, and HbSc must be interpreted with cautiongiven th e pathological pr ocesses, including anemia,increase d red cell turnover, trans fusion requirements, thatadversely i mpact HGBA1c as a mar ker of long-term glycemiccontrol . Alternative for ms of testing such as fructosaminesho uld be considered for these patients. MEAN BLOOD GLUCOSE 128 MG/DL 70-110 H (test code = MBG) CHEMISTRY 7 [id number] 12:01:00 Test Item Value Reference Range Interpretation Comments SODIUM (test code = NA) 145 mEq/L 135-145 N POTASSIUM (test code = K) 3.8 mEq/L 3.5-5.0 N CHLORIDE (test code = CL) 105 mEq/L 100-115 N CARBON DIOXIDE (test code = CO2) 29 mEq/L 22-31 N ANION GAP (test code = GAP) 15.00 10-20 N GLUCOSE (test code = GLU) 93 mg/dL 65-110 N BLOOD UREA NITROGEN (test code = 15 mg/dL 7-18 N BUN) GLOMERULAR FILTRATION RATE (test 73 ml/min >60 N code = GFR) CREATININE (test code = CREAT) 0.8 mg/dL 0.5-1.0 N CALCIUM (test code = CA) 9.0 mg/dL 8.4-10.2 N GLYCOSYLATED HEMOGLOBIN (HA1C)2020-08-20 12:01:00 Test Item Value Reference Range Interpretation Comments GLYCOSYLATED HEMOGLOBIN (HA1C) (test code = GLYHGB) URINALYSIS [id number] 11:42:00 Test Item Value Reference Range Interpretation Comments UA COLOR (test code = COLU) YELLOW YELLOW UA APPEARANCE (test code = CLEAR CLEAR APPU) UA GLUCOSE DIPSTICK (test code NEGATIVE NEG = DGLUU) UA BILIRUBIN DIPSTICK (test NEGATIVE NEG code = BILU) UA KETONE DIPSTICK (test code NEGATIVE NEG = KETU) UA SPECIFIC GRAVITY (test code 1.016 1.001-1.035 N = SGU) UA BLOOD DIPSTICK (test code = NEG NEG YARON) UA PH DIPSTICK (test code = 6.0 5-9 ZEKE) UA PROTEIN DIPSTICK (test code NEGATIVE NEG = PROU) UA UROBILINIOGEN DIPSTICK NEGATIVE mg/dL NEG (test code = URO) UA NITRITE DIPSTICK (test code NEG NEG = VIDA) UA LEUKOCYTE ESTERASE DIPSTICK TRACE NEG A (test code = LEUU) UA WBC (test code = WBCU) 0-2 #/hpf NONE SEEN UA RBC (test code = RBCU) 0-2 #/hpf NONE SEEN UA EPITHELIAL CELLS (test code RARE #/HPF RARE-FEW = EPIU) UA MUCUS (test code = MUCU) RARE NONE SEEN URINE SAMPLE: CLEAN CATCHCBC W/AUTO [id number] 11:39:00 Test Item Value Reference Range Interpretation Comments WHITE BLOOD CELL (test code = WBC) 5.8 K/mm3 6.5-12.3 L RED BLOOD CELL (test code = RBC) 4.70 M/mm3 3.51-4.69 H HEMOGLOBIN (test code = HGB) 13.8 g/dL 10.1-13.8 N HEMATOCRIT (test code = HCT) 43.5 % 32.5-41.8 H MEAN CELL VOLUME (test code = MCV) 92.6 fL 84.6-96.6 N MEAN CELL HGB (test code = MCH) 29.4 pg 27.3-33.9 N MEAN CELL HGB CONCETRATION (test 31.7 gm/dL 32.0-34.2 L code = MCHC) RED CELL DISTRIBUTION WIDTH (test 13.3 % 12.2-16.3 N code = RDW) PLATELET COUNT (test code = PLT) 272 K/mm3 134-363 N MEAN PLATELET VOLUME (test code = 10.6 fL 9.2-12.7 N MPV) NEUTROPHIL % (test code = NT%) 52.2 % 57.9-77.3 L LYMPHOCYTE % (test code = LY%) 36.7 % 14.5-29.7 H MONOCYTE % (test code = MO%) 8.0 % 3.6-10.2 N EOSINOPHIL % (test code = EO%) 2.1 % 0.0-3.0 N BASOPHIL % (test code = BA%) 0.7 % 0.1-0.9 N NEUTROPHIL # (test code = NT#) 3.0 K/mm3 LYMPHOCYTE # (test code = LY#) 2.1 K/mm3 MONOCYTE # (test code = MO#) 0.5 K/mm3 EOSINOPHIL # (test code = EO#) 0.12 K/mm3 BASOPHIL # (test code = BA#) 0.0 K/mm3 RBC MORPHOLOGY REQUIRED (test code NORMAL NORMAL = RBCM) PLATELET MORPHOLOGY REQUIRED (test NORMAL NORMAL code = PLTMR) - XR CHEST 2 [id number] 08:27:00 [facility] 1960 Sex: F Patient Name: KATHY DORMAN Unit No: [id number] EXAMS: CPT CODE: [id number] XR CHEST 2 V 00026 CHEST RADIOGRAPHS - PA AND LATERAL: COMPARISON: None CLINICAL HISTORY: PREOP The cardiopericardial silhouette is within normal limits. Lungs are clear. No vascular congestion or pneumothorax. IMPRESSION: No acute pulmonary abnormality. at 0827 Reported and signed by: Navin Becerril MD CC: Norah Agustin Technologist: Patricia Escobar, RT Trnscrbd D/ (0827) [id number] Orig Print D/T: S: 08/23/2020 (1035) The NAME:KATHY DORMAN Radiology Department PHYS: Norah Parekh MD [address] : 1960 AGE: 59 SEX: F [place], [place] [address] LOC: MAUDE PHONE #: [phone] EXAM DATE: 08/20/2020 STATUS: PRE SDC FAX #: [phone] RAD NO: Page 1 Signed ReportNovel Coronavirus 2019 [id number] 08:13:00 Test Item Value Reference Range Interpretation Comments Novel Coronavirus Not Detected Not Detected Testing wa s performed 2018 Inhouse (test using the Aptima code = COVNONPUI) SARS-CoV-2 assay.This nucleic acid amplification t est was developed and itsperformance characteristics determined by [facility]. Nucleic acid amplification t ests include PCRand TMA. This test has not be en FDA cleared or appr shantelle.This test has been a uthorized by FDA under an Emergency UseAuthorizatio n (EUA). This test is on ly authorized fort he duration of alexandro e the declaration aaron t circumstancesex ist justifying the authorization o f the emergency use o fin vitro diagnostic test s for detection of SA RS-CoV-2 virusand/or aleah gnosis of COVID-19 infect ion under xkfrupl673(b)(1 ) of the Act, 21 U.S.C. 360bbb-3(b) (1) , unless theauthorizatio n is terminated or r evoked sooner.When aleah gnostic testing is nega tive, the possibility of afalse negative result should be considered i n the contextof a pat ient's recent exposure s and the presence ofclin ical signs and sympt oms consistent with COVID-19. Anind ividual without symptom s of COVID-19 and wh o is notshedding ABBI S-CoV-2 virus would exp ect to have a negative (not detected) resul t in this assay.Performed At: [facility] [address] [id number] madison Reese MD Ph:[phone] Notes Date/Time Note Provider Source 2020-08-25 07:28:00-00:00 [facility] Gynecology Post Prog Note REPORT#:[id number] REPORT STATUS: Signed DATE:08/25/20 TIME: 727 PATIENT: KATHY DORMAN UNIT #: [id number] ROOM/BED: [address] : [birth year] AGE: 59 SEX: F ATTEND: Princess Agustin MD ADM AUTHOR: Norah Agustin MD * ALL edits or amendments must be made on the [employer] document * General ORM Surgeries: Surgery Date and Time: 08/24/2020729 Primary Procedure: FOUR PUNCTURE TOTAL LAPAROS COPIC Secondary Procedures: LAPAROSCOPIC UTEROSACRAL LIGAMENT CYSTOSCOPY WITH PROCEDURE POSTERIOR REPAIR Post-op: day 1 Subjective Patient reports: Yes: ambulating, flatus/bowel movement, pain con trolled, tolerating diet. Objective General VS/I O: Last Documented: Result Date Time Pulse Ox 95 08/25 0454 B/P 95/55 08/25 0454 B/P Mean 68.1 08/25 0454 O2 Delivery Room air 08/25 453 Temp 98.4 08/25 0454 Pulse 60 08/25 0454 Resp 16 08/25 0454 O2 Flow Rate 10 08/24 1000 24 hour I O ending at 0700: 08/25 0700 08/24 1900 Intake Total 1500.00 1815.00 Output Total 1100 950 Balance 400.00 865.00 Intake, IV 700.00 1775.00 Intake, Oral 800 40 Number Voids Output, 50 Estimated Blood Loss Output, Urine 1100 900 PATIENT WEIGHT: Weight (lb): 146 Weight (oz): 13.25 Weight (kg): 66.600 Physical Exam General appearance: alert, awake, oriented, no a cute distress, pleasant, conversational, mental status normal Abdomen: normal bowel sounds, soft Results Findings/Data: Laboratory Tests 08/26 423 Hematology Hgb (10.1 - 13.8 g/dL) 11.7 Hct (32.5 - 41.8 %) 36.1 Diagnosis, Assessment Plan Free Text A P: -d/c instructions reviewed Electronically Signed by Norah Agustin MD on 0 08/25/20 at 0729 [facility] #:[id number] END OF REPORT 2020-08-24 12:03:00-00:00 [id number] [facility] [address] [place], [place] [address] PATIENT NAME: KATHY DORMAN ADMIT DATE: 08/24/20 ACCOUNT NO: [id number] ROOM NO: [facility] AGE: 59 SEX: F ADMITTING PHYSICIAN: Norah Agustin MD ATTENDING PHYSICIAN: Norah Agustin MD OPERATION DATE: 08/24/2020 PREOPERATIVE DIAGNOSES: 1. Cystocele. 2. Uterine prolapse. 3. Rectocele. 4. Stress urinary incontinence. POSTOPERATIVE DIAGNOSES: 1. Cystocele. 2. Uterine prolapse. 3. Rectocele. 4. Stress urinary incontinence. PROCEDURES: 1. Total laparoscopic hysterectomy. 2. Laparoscopic bilateral salpingo-oophorectomy. 3. Laparoscopic bilateral ureterolysis. 4. Laparoscopic uterosacral ligament colpopexy. 5. Cystoscopy. 6. Posterior colporrhaphy. SURGEON: Norah Agustin MD ENGINEER SYSTEM ADMINISTRATOR: R4 resident, Andressa Wu. ANESTHESIA: General endotracheal and local. ESTIMATED BLOOD LOSS: 50 mL. INDICATION: Ms. Dorman is a 59-year-old female wh o presented with symptomatic stage II prolapse. A complex urodynamic testing with reduction of prolapse also confirmed urodynamic stress incontinence. After extensive counseling, she elected to have surgical int ervention. She, however, declined midurethral sling for treatment of her stress urinary incontinence . FINDINGS: Laparoscopy revealed normal-appearing liver margin. She had normal-appearing uterus and fallopian tubes with atrophic-appearing ovaries. Cystourethroscopy revealed u reteral orifices in the normal anatomical location. Bilateral ureteral efflux was visualized. There was no evidence of bladder lesions or injury. The urethra was noted to be i ntact. PROCEDURE IN DETAIL: The patient was arianna en to the operating room where she was PATIENT NAME: KATHY DORMAN 0 prepped and draped in the [facility] sterile fashion in a dorsal lithotomy position. A Stephen catheter was placed through the urethral meatus. A AMAYA uterine manipulator and AFRICA colpotomizer were secured in place. Attention was then turned to the abdomen. In the umbilical region, a 5-mm skin incision was made. Through this incision, the V eress needle was introduced and pneumoperitoneum to 15 mmHg was obtained. A 5-mm laparoscope via a 5 -mm Optiview trocar was inserted. Inferior epigastric vessels were ident ified along the patient's anterior abdominal wall. In the patient's left l ower quadrant, an 8-mm skin incision was made and 8-mm t rocar was placed under direct visualization. In the patient's right lower quadrant and midli ne suprapubically, 5-mm skin incisions were made and 5-mm trocars were placed under dir ect visualization. The pelvis was then examined with the above noted findings. Beginning on the patient's left side, the round ligament was coagulated and transected with the Harmonic scalpel. The Harmonic scalpel was used to open the anterior leaf of the broad ligament followed by the vesicouterine peritoneum. Adjacent to the left ovary, the infundibulopelvi c ligament was coagulated and transected with the Harmonic scalpel. This was e xtended to the previously transected round ligament. The uterine artery wa s skeletonized. At the level of the internal cervical os, the uterine artery was coagulated. The same was then performed on the patient's right side with good hemostasis. EndoShears were used to sharply dissect the bladder from th e pubocervical tissue anteriorly. At the level of the internal cervica l os, the uterine artery was again coagulated and transected with the Harmoni c scalpel. This was performed bilaterally with good hemostasis. With the cole tance of the vaginal AFRICA colpotomizer, the Harmonic s calpel was then used to circumferentially detach the cervix from the apex of the vagina. Care was arianna en to stay inside of the previously transected uterine artery pedicle. Th e specimen was delivered through the vaginal colpotomy. The vaginal cuff was closed in a continuous fashion with a 0 V-Loc 180 suture. Good hemostas is was noted. A Lucite stent was placed in the vagina. The bladder was further dissected from the pubocervical tissue anteriorly. The course o f the ureter along the right and left pelvic sidewall was visualized and its relationship to the uterosacral ligament. The peritoneum between the ureter and the uterosacral ligament was opened with EndoShears performing ureterolysis i n hopes of preventing medial kinking of the ureters as well as to allow for s keletonization of the uterosacral ligament. Two sutures of 0 Ethibond were then placed in the proximal portion of the uterosacral liga ment at approximately the level of the ischial spine through the uterosacral ligaments attachment to the posterior vaginal cuff and anteriorly through the pubocerv ical tissue plicating the pubocervical tissue apically. This was performed bilaterally and all sutures were tied and placed extracorporeally. Good hemo stasis was noted. The anterior vaginal epithelium was then injected with Stephen catheter was then removed. Cystourethroscopy was then performed wi th a 70-degree cystoscope revealing the above noted fi ndings. A complete bladder survey with full bladder distention was performed. Stephen catheter was rep laced. Trocars were removed under d irect visualization. Pneumoperitoneum was released. Skin incisions were injected with 0.25% Marcain e with epinephrine. Skin incisions were closed with 4-0 Monocryl and derm al glue. Attention was then turned vaginally. The cystoce le had been corrected with apical suspension and plication of the pubocervi amie tissue. I then proceeded PATIENT NAME: KATHY DORMAN 0 with posterior colporrhaphy. The posterior vaginal wall and perineum were injected with 0.25% Marcaine with epinephrine. A small ellipti amie incision was made at the introitus and previous scarring was excised. The posterior vaginal epit helium was opened in the midline. The vaginal epithelium was sharply diss ected from the underlying rectovaginal tissue. The rec tovaginal tissue was serially plicated with 2-0 PDS suture. The perineal body was reapproximated wit h 2-0 PDS suture. Good hemostasis was noted. The vaginal epithelium was lightly trimmed. The vaginal epithelium was closed in a continuous fashion wi th 2-0 Vicryl suture. Again, good hemostasis was noted. The vagina wa s irrigated and a vaginal packing with estradiol cream was placed. The patient tolerated the procedure well. Sponge , lap, and needle counts were correct x2. She was taken to the recovery room i n stable condition. Dictated By: Norah Agustin MD WT: OP:F.HIM/CATGI/NTS Conf#: [id number]#: [id number] Authenticated by Norah Agustin MD On 08/26/19 06:59:09 AM at 0659 PATIENT NAME: KATHY DORMAN 0 2020-08-20 08:00:00-00:00 [id number] [facility] [address] [place] [place] [address] PATIENT NAME: KATHY DORMAN ADMIT DATE: ACCOUNT NO: [id number] ROOM NO: AGE: 59 SEX: F ADMITTING PHYSICIAN: ATTENDING PHYSICIAN: Norah Agustin MD Order: [id number] Test Reason : PRE-OP Test Date/Time Stamp: SunAug 20 2020 08:00:32 Blood Pressure : / mmHG Vent. Rate : 059 BPM Atrial Rate : 059 BPM P-R Int : 152 ms QRS Dur : 090 ms QT Int : 422 ms P-R-T Axes : 028 045 030 degree s QTc Int : 417 ms Sinus bradycardia Otherwise normal ECG No previous ECGs available Confirmed by NADJA MEDINA MD ([id number]) on 08/21/19 10:05:43 PM Referred By: Norah Agustin Confirmed by:NADJA BELCHER MD Electronically Signed by Nadja Medina MD on 0 08/20/20 at 2205 PATIENT NAME: KATHY DORMAN 0 2020-05-10 08:28:00-00:00 [id number] [facility] [place] [facility] [address] [place] [address] PATIENT NAME: KATHY DORMAN ADMIT DATE: ACCOUNT NO: [id number] ROOM NO: AGE: 59 REPORT TYPE: ENDOSCOPY REPORT SEX: F ADMITTING PHYSICIAN: ATTENDING PHYSICIAN:Clyde Collins MD [facility] Gastroenterology Patient Name: Dandy Pérez Attending MD: Clyde Daniels MD Procedure Date: 05/10/2020 8:28 AM 6 Date of : 09/28 Admit Type: Preadmit Age: 59 Room: Room 1 Gender: Female Note Status: Finalized Procedure: Colonoscopy Pre Procedure Diagnosis: Screening for colorecta l malignant neoplasm Assistants: Clyde Collins MD, Lynsey Bojorquez (Nurse), Vita Mays, Assistant Professor Of Geography Anesthesia: Monitored Anesthesia Care Introduction: Last Colonoscopy: 5 years ago. Procedure: Pre-Anesthesia Assessment: - Prior to the procedure, a History and Physica l was performed, and patient medications and allergies were reviewed. The patient is compet ent. The risks and benefits of the procedure and the sedation options and risks were discussed with the patient. All questions were answered and inform ed consent was obtained. Patient identification an d proposed procedure were verified by the physic jaya, the nurse, the anesthesiologist, the anesthetis t and the document management technician in the pre-procedure area in the procedure room in the endoscopy suite. Mental Status Examination: alert and oriented. Airway Examination: normal oropharyngeal airway and n jossie mobility. Respiratory Examination: clear to auscultation. CV Examination: normal. ASA Grade Assessment: II - A patient with mild systemic disease. After reviewing the risks and benefits , the patient was deemed in satisfactory conditio n to undergo the procedure. The anesthesia plan was to use monitored anesthesia care (MAC). Immediatel y prior to administration of medications, the pat ient was re-assessed for adequacy to receive sedativ es. The heart rate, respiratory rate, oxygen saturations, blood pressure, adequacy of pulmon gonzalo ventilation, and response to care were monitore d PATIENT NAME: KATHY DORMAN ACCOUNT #: [id number] throughout the procedure. The physical status o f the patient was re-assessed after the procedur e. The benefits, risks, and alternatives to the procedure were discussed and informed consent w as obtained from the patient. I've assesed the pat ient on this date and reviewed the medical history, drug history, and previous anesthesia experience. Af ter obtaining informed consent, the scope was passe d under direct vision. Throughout the procedure, the patient's blood pressure, pulse, and oxygen saturations were monitored continuously. The Colonoscope was introduced through the anus an d advanced to the cecum, identified by appendicea l orifice and ileocecal valve. The colonoscopy wa s performed without difficulty. The patient jc ated the procedure well. The quality of the bowel preparation was adequate. The quality of the b owel preparation was evaluated using the BBPS (Bosto n Bowel Preparation Scale) with scores of: Right Colon = 3, Transverse Colon = 3 and Left Colon = 3 (entire mucosa seen well with no residual stain ing, small fragments of stool or opaque liquid). Th e total BBPS score equals 9. Post Procedure Findings: Non-bleeding external and internal hemorrhoids were found during retroflexion and during perianal exam. The hemo rrhoids were small. A few small-mouthed diverticula were found in the sigmoid colon. The exam was otherwise without abnormality. Complications: No immediate complications. Estim ated blood loss: None. Estimated Blood Loss: Post Procedure Diagnosis: - Non-bleeding externa l and internal hemorrhoids. - Diverticulosis in the sigmoid colon. - The examination was otherwise normal. - No specimens collected. Recommendation: - Discharge patient to home (via wheelchair). - Resume previous diet. - Continue present medications. - Repeat colonoscopy in 5 years for screening purposes. - Return to my office PRN. Clyde Collins MD Clyde Collins MD 05/10/2020 9:34:33 AM This report has been signed electronically. Number of Addenda: 0 Note Initiated On: 05/10/2020 8:28 AM PATIENT NAME: KATHY DORMAN ACCOUNT #: [id number] Procedure Date: 05/10/2020 8:28:23 AM Provation {[id number]}.pdf ProVation FT PDF at 0934 PATIENT NAME: KATHY DORMAN ACCOUNT #: [id number]
[2022-11-26] MEDS ORDERED: CEFOXITIN SODIUM 1 GM/VIAL ONE (03:40)
[2022-11-26] MEDS ORDERED: ONDANSETRON 4 MG/2 ML VIAL ONE (03:56)
[2022-11-26] MEDS ORDERED: NA CHLORIDE 0.9% 1,000 ML ONE (03:56)
[2022-11-26] MEDS ORDERED: FAMOTIDINE 20 MG/2 ML VIAL IV ONE (03:56)
[2022-11-26 04:13] LABS: Absolute Lymphocytes (CBC) 1.2 K/uL (0.7-4.9); Hematocrit 41.9 % (36.0-45.0); Lymphocytes % 22.6 % (15.3-44.8); MCV 87.5 fL (80-100); MPV 8.3 fL (7.6-11.3); RBC Red Blood Cell Count 4.79 M/uL (3.86-4.86)
[2022-11-26 04:24] LABS: Albumin 4.2 g/dL (3.4-5.0); Bilirubin Total 0.2 mg/dL (0.2-1.0); Potassium 3.8 mEq/L (3.5-5.1); Protein, Total 8.1 g/dL (6.4-8.2)
[2022-11-26 04:26] LABS: Specific Gravity 1.006 (1.005-1.030); Urine Bacteria None Seen /HPF (<20); Urine Bilirubin NEGATIVE (Negative); Urine Blood Negative (Negative); Urine Clarity Turbid (Clear); Urine Color Colorless (Yellow); Urine Glucose 3+ (Negative); Urine Mucus Slight /HPF (None Seen); Urine Protein NEGATIVE (Negative); Urine RBC None Seen /HPF (None Seen); Urine Urobilinogen Normal (Normal); Urine pH 6.5 (5.0-7.0)
[2022-11-26] MEDS ORDERED: PROMETHAZINE INJ 25 MG/ML AMP ONE (04:34)
--- NOTE | 2022-11-26 07:03 | ER ---
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 Patient stated drank 1 Quan Colada tonight. 03:20 Coronavirus screen: Vaccine status: Patient reports receiving the 2nd dose of the covid pf1 vaccine. 3 doses of Moderna Client denies travel out of the [place] in the last 14 days. At this time, the client does not indicate any symptoms associated with coronavirus-19. Ebola Screen: Patient negative for fever greater than or equal to 101.5 degrees Fahrenheit, and additional compatible Ebola Virus Disease symptoms. Initial Sepsis Screen: Does the patient meet any 2 criteria? HR > 90 bpm. No. Patient's initial sepsis screen is negative. Does the patient have a suspected source of infection? No. Patient's initial sepsis screen is negative. Risk Assessment: Do you want to hurt yourself or someone else? Patient reports no desire to harm self or others. 03:20 Method Of Arrival: EMS: [facility] pf1 03:20 Acuity: EDIN 3 pf1 03:56 Onset of symptoms was November 26, 2022. lg3 Historical: - Allergies: 03:37 No Known Allergies; pf1 - Home Meds: 03:37 Albuterol Inhl [Active]; Metformin Oral [Active]; Simvastatin Oral [Active]; pf1 - PMHx: 03:37 Asthma; Hypercholesterolemia; prediabetic; hernia; pf1 - PSHx: 03:37 Total abdominal hysterectomy; pf1 - Immunization history:: Adult Immunizations up to date, Last tetanus immunization: < 5 years ago Flu vaccine is up to date. - Social history:: Smoking status: Patient denies any tobacco usage or history of. Patient uses alcohol, but reports only rare drinking. Patient/guardian denies using street drugs. Screenin:[facility] ED Fall Risk Assessment (Adult) History of falling in the last 3 months, pf1 including since admission No falls in past 3 months (0 pts) Confusion or Disorientation No (0 pts) Intoxicated or Sedated Yes (3 pts) Impaired Gait No (0 pts) Mobility Assist Device Used No (0 pt) Altered Elimination No (0 pt) Score/Fall Risk Level 0 - 2 = Low Risk Oriented to surroundings, Maintained a safe environment, Educated pt \T\ family on fall prevention, incl call for assistance when getting out of bed, Assessed \T\ reinforced patient's understanding of fall precautions, Provided non-skid footwear, Hourly rounding (assess needs \T\ fall precautionary measures) done, Used ambulatory aids as needed (educated on \T\ assisted with), Used gait belt as appropriate. Abuse screen: Denies threats or abuse. Nutritional screening: No deficits noted. Tuberculosis screening: No symptoms or risk factors identified. Assessment: 03:54 General: Appears in no apparent distress. uncomfortable, Behavior is calm, cooperative. lg3 Pain: Complains of pain in epigastric area Noted to be crying, grimacing, resistant to movement. Neuro: No deficits noted. Flores Agitation-Sedation Scale (RASS): 0 - Alert and Calm Level of Consciousness is awake, alert, obeys commands, Oriented to person, place, time, situation. Cardiovascular: No deficits noted. Denies chest pain, shortness of breath, Capillary refill < 3 seconds Clubbing of nail beds is absent JVD is absent Patient's skin is warm and dry. Respiratory: No deficits noted. Airway is patent Respiratory effort is even, unlabored, Respiratory pattern is regular, symmetrical. GI: No deficits noted. Abdomen is round non-distended, Pt is actively vomiting bile, Abd is soft and non tender X 4 quads. Reports upper abdominal pain, epigastric pain, nausea. : No deficits noted. No signs and/or symptoms were reported regarding the genitourinary system. EENT: No deficits noted. No signs and/or symptoms were reported regarding the EENT system. Derm: No deficits noted. No signs and/or symptoms reported regarding the dermatologic system. Skin is intact, is healthy with good turgor, Skin is dry, Skin is normal, Skin temperature is warm. Musculoskeletal: No deficits noted. No signs and/or symptoms reported regarding the musculoskeletal system. Circulation, motion, and sensation intact. Range of motion: intact in all extremities. 06:56 General: Appears in no apparent distress. uncomfortable, Behavior is calm, cooperative. lg3 Pain: Complains of pain in epigastric area. Respiratory: Airway is patent Respiratory effort is even, unlabored, Respiratory pattern is regular, symmetrical. Vital Signs: 03:20 BP 155 / 76; Pulse 99; Resp 18; Temp 97.4; Pulse Ox 97% on R/A; Weight 66.22 kg; Height pf1 5 ft. 2 in. ; Pain 8/10; 04:32 BP 120 / 65; Pulse 89; Resp 17 S; Pulse Ox 99% on R/A; lg3 06:50 BP 133 / 69; Pulse 72; Resp 17 S; Pulse Ox 100% on R/A; as7 03:20 Body Mass Index 26.70 (66.22 kg, 157.48 cm) pf1 03:20 Pain Scale: Adult pf1 ED Course: 03:20 Patient arrived in ED. rv1 03:23 Russ Thomson DO is Attending Physician. ms3 03:37 Triage completed. pf1 03:42 Patient has correct armband on for positive identification. Bed in low position. Call pf1 light in reach. Side rails up X2. 03:46 Zoila Worthington, RN is Primary Nurse. lg3 03:54 Client placed on continuous cardiac and pulse oximetry monitoring. NIBP monitoring lg3 applied. color television console monitor on. Door closed. Noise minimized. Warm blanket given. Family accompanied patient. 03:54 Ethanol Sent. lg3 03:54 CBC with Diff Sent. lg3 03:54 CMP Sent. lg3 03:54 Lipase Sent. lg3 03:54 Urinalysis w/ reflexes Sent. lg3 03:54 Inserted saline lock: 20 gauge in right antecubital area, using aseptic technique. lg3 Blood collected. 03:56 Arm band placed on right wrist. lg3 04:40 Urinalysis w/ reflexes Sent. as7 05:03 CT Abd/Pelvis - IV Contrast Only In Process Unspecified. EDMS 05:04 CT Head Brain wo Cont In Process Unspecified. EDMS 07:02 Vivek White MD is Referral Physician. ms3 Administered Medications: 03:56 Drug: NS 0.9% IV 1000 ml Route: IV; Rate: 1 bolus; Site: right antecubital; lg3 04:33 Follow up: IV Status: Completed infusion; IV Intake: 1000ml lg3 03:56 Drug: Famotidine IVP 20 mg Route: IVP; Site: right antecubital; lg3 04:33 Follow up: Response: No adverse reaction lg3 03:56 Drug: Ondansetron IVP 4 mg Route: IVP; Site: right antecubital; lg3 04:33 Follow up: Response: No adverse reaction; No change in condition; Nausea unchanged lg3 04:30 Drug: Promethazine IM 12.5 mg Route: IM; Site: right deltoid; lg3 05:07 Follow up: Response: No adverse reaction; Marked relief of symptoms; Nausea is decreasedlg3 Intake: 04:33 IV: 1000ml; Total: 1000ml. lg3 Outcome: 07:03 Discharge ordered by . ms3 08:02 Patient left the ED. iw Signatures: Dispatcher [employer] EDMS Ryanne Borden RN RN iw Zoila Worthington RN RN lg3 Russ Thomson DO DO ms3 Zohra Garner RN RN 1 Kaylan Tobar 1 Lana Whitaker as7
--- NOTE | 2022-11-26 07:03 | EDPHYS ---
Physician Documentation [facility] Name: Elisa Dorman Age: 62 yrs Sex: Female : 1960 Arrival Date: 11/26/2022 Time: 03:18 Bed 7 Private MD: ED Physician Russ Thomson HPI: 11/26 03:28 This 62 yrs old Female presents to ER via Unassigned with complaints of headache, ms3 abdominal pain, nausea, vomiting. 03:28 62-year-old female with past medical history of asthma, prediabetes, hyperlipidemia ms3 presents with abdominal pain, headache that began at approximately 10 PM after drinking 1 sunday colada. Patient states her discomfort is an 8/10 described as aching. Patient endorses nausea, vomiting. Patient denies alleviating or inciting factors. Historical: - Allergies: 03:37 No Known Allergies; pf1 - Home Meds: 03:37 Albuterol Inhl [Active]; Metformin Oral [Active]; Simvastatin Oral [Active]; pf1 - PMHx: 03:37 Asthma; Hypercholesterolemia; prediabetic; hernia; pf1 - PSHx: 03:37 Total abdominal hysterectomy; pf1 - Immunization history:: Adult Immunizations up to date, Last tetanus immunization: < 5 years ago Flu vaccine is up to date. - Social history:: Smoking status: Patient denies any tobacco usage or history of. Patient uses alcohol, but reports only rare drinking. Patient/guardian denies using street drugs. ROS: 03:28 Constitutional: Negative for fever, and chills. Neck: Negative for injury, pain, and ms3 swelling, Cardiovascular: Negative for chest pain, and palpitations. Respiratory: Negative for shortness of breath, cough, wheezing, and pleuritic chest pain. 03:28 MS/Extremity: Negative for injury and deformity, Skin: Negative for injury, rash, and discoloration. 03:28 Abdomen/GI: Positive for abdominal pain, nausea and vomiting. 03:28 Neuro: Positive for headache. 03:28 All other systems are negative. Exam: 03:28 Constitutional: This is a well developed, well nourished patient who is awake, alert, ms3 and in no acute distress. Head/Face: Normocephalic, atraumatic. Neck: Trachea midline, no cervical lymphadenopathy. Supple, full range of motion without nuchal rigidity, or vertebral point tenderness. No Meningismus. Chest/axilla: Normal chest wall appearance and motion. Nontender with no deformity. Cardiovascular: Regular rate and rhythm with a normal S1 and S2. No gallops, murmurs, or rubs. Normal PMI, no JVD. No pulse deficits. Respiratory: Lungs have equal breath sounds bilaterally, clear to auscultation and percussion. No rales, rhonchi or wheezes noted. No increased work of breathing, no retractions or nasal flaring. Abdomen/GI: Soft, non-tender, with normal bowel sounds. No distension or tympany. No guarding or rebound. No evidence of tenderness throughout. Skin: Warm, dry with normal turgor. Normal color with no rashes, no lesions, and no evidence of cellulitis. MS/ Extremity: Pulses equal, no cyanosis. Neurovascular intact. Full, normal range of motion. 03:28 Neuro: Orientation: is normal, to person, place, time \T\ situation. Mentation: is normal, Memory: is normal, Cranial nerves: CN I not tested, CN II- XII are normal as tested, Cerebellar function: normal finger to nose testing, Motor: is normal, moves all fours, Sensation: is normal, no obvious gross deficits. 03:35 ECG was reviewed by the Attending Physician. ms3 Vital Signs: 03:20 BP 155 / 76; Pulse 99; Resp 18; Temp 97.4; Pulse Ox 97% on R/A; Weight 66.22 kg; Height pf1 5 ft. 2 in. ; Pain 8/10; 04:32 BP 120 / 65; Pulse 89; Resp 17 S; Pulse Ox 99% on R/A; lg3 06:50 BP 133 / 69; Pulse 72; Resp 17 S; Pulse Ox 100% on R/A; as7 03:20 Body Mass Index 26.70 (66.22 kg, 157.48 cm) pf1 03:20 Pain Scale: Adult pf1 MDM: 03:27 Patient medically screened. ms3 03:28 Differential diagnosis: cholecystitis, Cholelithiasis, gastritis, non-specific abd ms3 pain, pancreatitis, ICH. 07:04 Data reviewed: vital signs, nurses notes, lab test result(s), radiologic studies, and ms3 as a result, I will discharge patient. I considered the following discharge prescriptions or medication management in the emergency department Medications were administered in the Emergency Department. See MAR. Historians other than the Patient: EMS: [facility]. Spouse/Significant Other: Patient's . Counseling: I had a detailed discussion with the patient and/or guardian regarding: the historical points, exam findings, and any diagnostic results supporting the discharge/admit diagnosis, lab results, radiology results, the need for outpatient follow up, to return to the emergency department if symptoms worsen or persist or if there are any questions or concerns that arise at home. Response to treatment: the patient's symptoms have markedly improved after treatment, and as a result, I will discharge patient. Special discussion: I discussed with the patient/guardian in detail that at this point there is no indication for admission to the hospital. It is understood, however, that if the symptoms persist or worsen the patient needs to return immediately for re-evaluation. ED course: On reevaluation patient symptoms improved, patient is alert and orient x4, no apparent distress, nontoxic-appearing, speaking full sentences. Patient follow-up with primary care physician in 2 to 3 days. Patient understands and agrees to plan. All questions answered. Return precautions discussed include worsening symptoms, or any other concerns. 11/26 03:28 Order name: CBC with Diff; Complete Time: 05: ms3 11/26 03:28 Order name: CMP; Complete Time: : ms3 11/26 03:28 Order name: Lipase; Complete Time: 05: ms3 11/26 03:28 Order name: Urinalysis w/ reflexes; Complete Time: 05: ms3 11/26 03:28 Order name: Ethanol; Complete Time: 05:25 ms3 11/26 04:53 Order name: Urine Culture EDMS 11/26 03:28 Order name: CT Abd/Pelvis - IV Contrast Only ms3 11/26 03:28 Order name: CT Head Brain wo Cont ms3 11/26 03:28 Order name: IV Saline Lock; Complete Time: 03:54 ms3 11/26 03:28 Order name: Labs collected and sent; Complete Time: 03:54 ms3 EC:35 Rate is 94 beats/min. Rhythm is regular. QRS [place] is Normal. [place] interval is normal. QRS ms3 interval is normal. QT interval is normal. Clinical impression: Normal ECG. Interpreted by me. Reviewed by me. Administered Medications: 03:56 Drug: NS 0.9% IV 1000 ml Route: IV; Rate: 1 bolus; Site: right antecubital; lg3 04:33 Follow up: IV Status: Completed infusion; IV Intake: 1000ml lg3 03:56 Drug: Famotidine IVP 20 mg Route: IVP; Site: right antecubital; lg3 04:33 Follow up: Response: No adverse reaction lg3 03:56 Drug: Ondansetron IVP 4 mg Route: IVP; Site: right antecubital; lg3 04:33 Follow up: Response: No adverse reaction; No change in condition; Nausea unchanged lg3 04:30 Drug: Promethazine IM 12.5 mg Route: IM; Site: right deltoid; lg3 05:07 Follow up: Response: No adverse reaction; Marked relief of symptoms; Nausea is decreasedlg3 Disposition Summary: 11/26/22 07:03 Discharge Ordered Location: Home ms3 Condition: Stable ms3 Diagnosis - Headache ms3 - Upper abdominal pain, unspecified ms3 - Nausea with vomiting, unspecified ms3 Followup: ms3 - With: Vivek White MD - When: 2 - 3 days - Reason: Recheck today's complaints Discharge Instructions: - Discharge Summary Sheet ms3 - Abdominal Pain, Adult ms3 - General Headache Without Cause ms3 - Nausea and Vomiting, Adult ms3 Forms: - Medication Reconciliation Form ms3 - Thank You Letter ms3 - Antibiotic Education ms3 - Prescription Opioid Use ms3 Prescriptions: - ondansetron 4 mg Oral Tablet,disintegrating - take 1 tablet by ORAL route every 8 hours; 15 tablet; Refills: 0, Product ms3 Selection Permitted - Pepcid 20 mg Oral Tablet - take 1 tablet by ORAL route every 12 hours for 5 days; 10 tablet; Refills: 0, ms3 Product Selection Permitted Signatures: Dispatcher [employer] Zoila Russell RN RN lg3 Russ Thomson DO DO ms3 Zohra Garner RN RN pf1
[2022-11-26 08:48] VITALS: BP 133/69; TEMP 97.4; O2SAT 100
--- NOTE | 2022-11-27 09:59 | RAD REPORT ---
EXAM DESCRIPTION: CT ABDOMEN PELVIS WITH IV CONTRAST CLINICAL HISTORY: Abd pain;Nausea / vomiting COMPARISON: None. TECHNIQUE: CT ABDOMEN PELVIS WITH IV CONTRAST on 11/26/2022 3:28 AM CDT This exam was performed according to our departmental dose-optimization program, which includes autom ated exposure control, adjustment of the mA and/or kV according to patient size and/or use of iterati ve reconstruction technique. FINDINGS: Lower lungs are clear. Abdomen: The liver is normal in appearance. There is no biliary dilatation. There is a small hiatal h ernia. Gallbladder contains a single gallstone. The pancreas and spleen are normal in appearance. The adrenal glands and kidneys are unremarkable. Abdominal aorta is normal in course and caliber without aneurysm. There is no free air. There is no r etroperitoneal adenopathy. Pelvis: There is no bowel obstruction. Urinary bladder is unremarkable. There is no free fluid. Appen gibson is normal. Hysterectomy was performed. Skeleton: There are no acute osseous findings. No suspicious bony lesions. IMPRESSION: No acute process. Electronically signed by: Chriss Taveras MD 11/26/2022 6:25 AM CDT Due to temporary technical issues with the PACS/Fluency reporting system, reports are being signed by the in house radiologist without review as a courtesy to ensure prompt reporting. The interpreting r adiologist is fully responsible for the content of the report.
--- NOTE | 2022-11-27 10:22 | RAD REPORT ---
EXAM DESCRIPTION: CT HEAD WITHOUT IV CONTRAST CLINICAL HISTORY: Headache, nausea, vomiting COMPARISON: None. TECHNIQUE: CT HEAD WITHOUT IV CONTRAST on 11/26/2022 3:28 AM CDT This exam was performed according to our departmental dose-optimization program, which includes autom ated exposure control, adjustment of the mA and/or kV according to patient size and/or use of iterati ve reconstruction technique. FINDINGS: There is no acute hemorrhage, mass effect or midline shift. Teran-white differentiation is preserved. There is no hydrocephalus. There is no significant volume loss for age. The calvarium is intact. Orbits and globes are unremarkable. The paranasal sinuses are clear. Mastoid air cells are clear. IMPRESSION: No acute intracranial findings. Electronically signed by: Chriss Taveras MD 11/26/2022 6:23 AM CDT Due to temporary technical issues with the PACS/Fluency reporting system, reports are being signed by the in house radiologist without review as a courtesy to ensure prompt reporting. The interpreting r adiologist is fully responsible for the content of the report.
--- NOTE | 2022-11-27 17:14 | EKG ---
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
== END 2022-11-26 08:02 | disposition home or self-care (01) ==
LOC: ER 03:18
DX: R51.9 Headache, unspecified (principal); R10.10 Upper abdominal pain, unspecified; R11.2 Nausea with vomiting, unspecified; E78.00 Pure hypercholesterolemia, unspecified; R73.03 Prediabetes
CPT/HCPCS: 96361; 93005; 87088; 85025; 81001; 87086; 36415; 83690; 80053; 70450; 74177; 96375; 96372; 96374; 99285; 82077; Q9967; J2550; J2405; J7030; J0694